=== PATIENT | female | born 1980 | race Caucasian/White ===

== ENCOUNTER → 2017-02-02 | Outpatient (CLI) | payer OTHER ==
[~2017-02-02] MED LIST: ABIL15TA PO; ABIL15TA2 PO; ABIL1TAB7 PO; ARIP1TAB2 PO; Aripiprazole PO; CEFT500T3 PO; CLON1TAB PO; DEPA500T2 PO; ESKALITH PO; LAMI25TA PO; LAMO100T PO; LATU20TA PO; LEVO25TABR PO; LITH45TASA PO; LO LTAB PO; PROZ20CA11 PO; TRAZ50TA2 PO; TRAZ50TA4 PO; TRAZO50TA PO; TRIL600T PO; ZOLP-189 PO
[2017-02-02 07:40] LABS: MEAN CORPUSCULAR HEMOGLOBIN 29.3 pg (27.0-33.0); MEAN CORPUSCULAR VOLUME 88.7 fl (80.0-96.0); RED CELL DISTRIBUTION WIDTH 12.7 % (11.5-14.5); WHITE BLOOD COUNT 8.8 K/mm3 (4.0-10.0)
[2017-02-02 07:58] LABS: ALBUMIN 3.5 GM/DL (3.2-5.2); ANION GAP 7 MEQ/L (8-16); BLOOD UREA NITROGEN 11 MG/DL (7-18); CARBON DIOXIDE LEVEL 29 MEQ/L (21-32); CHLORIDE LEVEL 109 MEQ/L (98-107); CREATININE FOR GFR 0.87 MG/DL (0.55-1.02); GLOMERULAR FILTRATION RATE > 60.0 (>60); GLUCOSE, FASTING 100 MG/DL (70-105); PHOSPHORUS LEVEL 2.9 MG/DL (2.5-4.9); POTASSIUM SERUM 4.9 MEQ/L (3.5-5.1); SODIUM LEVEL 145 MEQ/L (136-145)
[2017-02-02 07:59] LABS: LITHIUM LEVEL 0.54 MEQ/L (0.60-1.20)
== END ==
LOC: M LAB 06:42
PROVIDERS: ATTEND Nurse Practitioner Psychiatric/Mental Health
DX: Z79.899 Other long term (current) drug therapy (principal)

== ENCOUNTER 2017-03-22 09:14 | Emergency (ER) | payer OTHER ==
[~2017-03-22] VITALS: Ht 160 cm; Wt 97.5 kg
[2017-03-22 09:15] VITALS: BP 148/92
[2017-03-22 10:25] LABS: LITHIUM LEVEL 0.92 MEQ/L (0.60-1.20)
== END 2017-03-22 10:56 | disposition home or self-care (01) ==
LOC: M ED 10:50
DX: R19.7 Diarrhea, unspecified (principal); T43.595A Adverse effect of other antipsychotics and neuroleptics, initial encounter; F31.9 Bipolar disorder, unspecified; F41.9 Anxiety disorder, unspecified; F17.210 Nicotine dependence, cigarettes, uncomplicated; Z79.899 Other long term (current) drug therapy
CPT/HCPCS: 36415; 80178; 99281; G0480

== ENCOUNTER → 2017-04-25 | Outpatient (CLI) | payer OTHER ==
[2017-04-25 10:03] LABS: MEAN CORPUSCULAR HEMOGLOBIN 28.6 pg (27.0-33.0); MEAN CORPUSCULAR HGB CONC 32.8 g/dl (32.0-36.5); MEAN CORPUSCULAR VOLUME 87.2 fl (80.0-96.0); WHITE BLOOD COUNT 11.1 K/mm3 (4.0-10.0)
[2017-04-25 10:40] LABS: ALBUMIN 3.6 GM/DL (3.2-5.2); ALKALINE PHOSPHATASE 77 U/L (45-117); ALT/SGPT 21 U/L (12-78); ANION GAP 5 MEQ/L (8-16); AST/SGOT 11 U/L (15-37); BILIRUBIN,TOTAL 0.9 MG/DL (0.2-1.0); BLOOD UREA NITROGEN 9 MG/DL (7-18); CALCIUM LEVEL 9.1 MG/DL (8.5-10.1); CARBON DIOXIDE LEVEL 29 MEQ/L (21-32); CHLORIDE LEVEL 108 MEQ/L (98-107); CHOLESTEROL LEVEL 182 MG/DL (<200); CREATININE FOR GFR 0.71 MG/DL (0.55-1.02); GLOMERULAR FILTRATION RATE > 60.0 (>60); GLUCOSE, FASTING 93 MG/DL (70-105); PHOSPHORUS LEVEL 3.6 MG/DL (2.5-4.9); POTASSIUM SERUM 4.2 MEQ/L (3.5-5.1); SODIUM LEVEL 142 MEQ/L (136-145); TOTAL PROTEIN 7.2 GM/DL (6.4-8.2); TRIGLYCERIDES LEVEL 157 MG/DL (<150)
[2017-04-25 11:01] LABS: LITHIUM LEVEL 0.38 MEQ/L (0.60-1.20)
== END ==
LOC: M LAB 09:39
PROVIDERS: ATTEND Nurse Practitioner Psychiatric/Mental Health
DX: F31.32 Bipolar disorder, current episode depressed, moderate (principal)

== ENCOUNTER → 2017-04-25 | Outpatient (CLI) | payer OTHER | LOC: M OUTALCOH 08:17 | PROVIDERS: ATTEND Psychiatry & Neurology Psychiatry | DX: F10.20 Alcohol dependence, uncomplicated (principal); F12.10 Cannabis abuse, uncomplicated ==

== ENCOUNTER 2017-05-06 12:24 | Emergency (ER) | payer MEDICAID, OTHER ==
[~2017-05-06] VITALS: Ht 162.6 cm; Wt 110.7 kg
[2017-05-06] MEDS ORDERED: LITH300C PO (12:30)
[2017-05-06] MEDS ORDERED: LAMO200T PO (12:30)
[2017-05-06] MEDS ORDERED: PENI250T57 PO (14:10)
[2017-05-06] MEDS ORDERED: IBUP600T26 PO (14:10)
[2017-05-06] MEDS ORDERED: PENICILLIN V POTASSIUM 500 MG TAB PO ONE (14:15)
[2017-05-06] MEDS ORDERED: IBUPROFEN 600 MG TAB PO ONE (14:15)
[2017-05-06] MEDS ORDERED: NORCO 5/325MG TABLET (BULK FOR ED) PO ONE (14:15)
[2017-05-06 15:05] VITALS: BP 144/74
== END 2017-05-06 15:07 | disposition home or self-care (01) ==
LOC: M ED 12:56
DX: S02.5XXA Fracture of tooth (traumatic), initial encounter for closed fracture (principal); X58.XXXA Exposure to other specified factors, initial encounter; Y92.9 Unspecified place or not applicable; Y93.9 Activity, unspecified; Y99.9 Unspecified external cause status; F17.200 Nicotine dependence, unspecified, uncomplicated

== ENCOUNTER 2017-05-24 10:00 | Outpatient (RCR) | payer MEDICAID ==
[~2017-05-24 10:00] MED LIST changes: -ABIL15TA2 PO; +ABIL1TAB12 PO; -ABIL1TAB7 PO; +ABIL20TA5 PO; +IBUP-1022 PO; +LAMO200T PO; +LITH300C PO; +PENI250T57 PO; +TRAZ50TA11 PO; -TRAZ50TA4 PO
== END 2017-05-26 ==
LOC: M OUTALCOH 10:00
PROVIDERS: ATTEND Psychiatry & Neurology Psychiatry
DX: Z13.9 Encounter for screening, unspecified (principal); F10.20 Alcohol dependence, uncomplicated; F12.10 Cannabis abuse, uncomplicated; F17.200 Nicotine dependence, unspecified, uncomplicated

== ENCOUNTER 2017-06-22 09:00 | Outpatient (RCR) | payer MEDICAID | END 2017-06-26 | LOC: M OUTALCOH 09:00 | PROVIDERS: ATTEND Psychiatry & Neurology Psychiatry | DX: F10.20 Alcohol dependence, uncomplicated (principal); F12.10 Cannabis abuse, uncomplicated; F17.200 Nicotine dependence, unspecified, uncomplicated ==

== ENCOUNTER 2018-01-01 19:54 | Emergency (ER) | payer OTHER, MEDICAID ==
[2018-01-02 00:41] LABS: INFLUENZA A AMPLIFICATION NEGATIVE (NEGATIVE)
[2018-01-02 00:42] LABS: INFLUENZA B AMPLIFICATION POSITIVE (NEGATIVE)
[2018-01-02] MEDS: OSELTAMIVIR PHOSPHATE 75 MG CAP (TAMIFLU) PO (02:14)
== END 2018-01-02 02:17 | disposition home or self-care (01) ==
LOC: M ED 19:54
DX: J10.1 Influenza due to other identified influenza virus with other respiratory manifestations (principal); F17.200 Nicotine dependence, unspecified, uncomplicated; Z79.899 Other long term (current) drug therapy
CPT/HCPCS: 87502

== ENCOUNTER 2018-09-21 07:41 | Emergency (ER) | payer OTHER ==
[2018-09-21] MEDS: NORCO, ANEXSIA 5/325MG TABLET (HYDROcodone/ACETAMINOPHEN) PO (08:07)
== END 2018-09-21 08:42 | disposition home or self-care (01) ==
LOC: M ED 07:41
DX: S46.812A Strain of other muscles, fascia and tendons at shoulder and upper arm level, left arm, initial encounter (principal); S46.012A Strain of muscle(s) and tendon(s) of the rotator cuff of left shoulder, initial encounter; M19.012 Primary osteoarthritis, left shoulder; X50.0XXA Overexertion from strenuous movement or load, initial encounter; Y92.098 Other place in other non-institutional residence as the place of occurrence of the external cause; F31.9 Bipolar disorder, unspecified; F17.210 Nicotine dependence, cigarettes, uncomplicated; Z79.899 Other long term (current) drug therapy
CPT/HCPCS: 73030

== ENCOUNTER → 2018-10-29 | Outpatient (CLI) | payer OTHER | LOC: M LAB 17:35 | DX: K75.9 Inflammatory liver disease, unspecified (principal) | CPT/HCPCS: 86803 ==

== ENCOUNTER → 2018-12-24 | Outpatient (CLI) | payer OTHER ==
[~2018-12-24] MED LIST changes: +IBUP80TA PO; -LAMO200T PO; +LAMO200T2 PO; +OSEL75CA PO; +TRAZ-160; +TRAZ-160 PO; -TRAZ50TA11 PO
[2018-12-24 09:08] LABS: BASO % 0.2 % (0.0-1.0); EOS # 0.2 10^3/uL (0.0-0.50); EOS % 1.8 % (0.0-3.0); HEMATOCRIT 43.7 % (36.0-47.0); HEMOGLOBIN 14.4 g/dl (12.0-15.5); LYMPH # 2.7 10^3/uL (1.5-4.5); LYMPH % 30.1 % (24.0-44.0); MEAN CORPUSCULAR HEMOGLOBIN 28.6 pg (27.0-33.0); MEAN CORPUSCULAR VOLUME 86.7 fl (80.0-96.0); MONO # 0.7 10^3/uL (0.0-0.8); MONO % 8.2 % (0.0-5.0); NEUTROPHILS # 5.4 10^3/uL (1.8-7.7); PLATELET COUNT, AUTOMATED 181 10^3/uL (150-450); RED BLOOD COUNT 5.04 10^6/uL (4.00-5.40); WHITE BLOOD COUNT 9.1 10^3/uL (4.0-10.0)
[2018-12-24 09:33] LABS: ALBUMIN 3.5 GM/DL (3.2-5.2); ALT/SGPT 167 U/L (12-78); BILIRUBIN,TOTAL 0.4 MG/DL (0.2-1.0); BLOOD UREA NITROGEN 11 MG/DL (7-18); CALCIUM LEVEL 8.7 MG/DL (8.5-10.1); CARBON DIOXIDE LEVEL 27 MEQ/L (21-32); CHLORIDE LEVEL 106 MEQ/L (98-107); CREATININE FOR GFR 0.64 MG/DL (0.55-1.30); GLOMERULAR FILTRATION RATE > 60.0 (>60); GLUCOSE, FASTING 85 MG/DL (70-100); POTASSIUM SERUM 4.2 MEQ/L (3.5-5.1); SODIUM LEVEL 140 MEQ/L (136-145); TOTAL PROTEIN 6.9 GM/DL (6.4-8.2)
[2018-12-24 09:48] LABS: HEPATITIS B SURFACE ANTIBODY NEGATIVE (POSITIVE)
[2018-12-24 09:59] LABS: HEPATITIS B SURFACE ANTIGEN NEGATIVE (NEGATIVE)
[2018-12-24 10:35] LABS: HEPATITIS C VIRUS ABY INDEX > 11.0 INDEX (<0.8)
== END ==
LOC: M LAB 07:50
PROVIDERS: ATTEND Family Medicine Addiction Medicine
DX: B18.2 Chronic viral hepatitis C (principal)

== ENCOUNTER → 2018-12-27 | Outpatient (REF) | payer OTHER, MEDICAID ==
[2018-12-27 15:42] LABS: INR 0.92; PROTHROMBIN TIME 12.5 SECONDS (12.1-14.4)
[2019-01-01 14:17] LABS: HEPATITIS C QUANTITATION 1318930 IU/mL (.)
[2019-01-02 00:08] LABS: HEPATITIS C VIRUS GENOTYPE 3 (.)
== END ==
LOC: M LAB REF 15:04
PROVIDERS: ATTEND Nurse Practitioner Adult Health
DX: B18.2 Chronic viral hepatitis C (principal)

== ENCOUNTER → 2019-01-08 | Outpatient (REF) | payer OTHER, MEDICAID ==
[2019-01-08 21:48] LABS: CHLAMYDIA DNA AMPLIFICATION NEGATIVE (NEGATIVE); GC DNA AMPLIFICATION NEGATIVE (NEGATIVE)
== END ==
LOC: M LAB REF 17:58
PROVIDERS: ATTEND Physician Assistant Medical
DX: Z11.3 Encounter for screening for infections with a predominantly sexual mode of transmission (principal)

== ENCOUNTER → 2019-03-06 | Outpatient (REF) | payer OTHER, MEDICAID ==
[2019-03-11 14:47] LABS: HEPATITIS C QUANTITATION <15 IU/mL (.)
== END ==
LOC: M LAB REF 16:39
PROVIDERS: ATTEND Nurse Practitioner Adult Health
DX: B18.2 Chronic viral hepatitis C (principal)

== ENCOUNTER → 2019-04-03 | Outpatient (REF) | payer OTHER, MEDICAID ==
[2019-04-08 14:12] LABS: HEPATITIS C QUANTITATION HCV Not Detected IU/mL (.)
== END ==
LOC: M LAB REF 17:20
PROVIDERS: ATTEND Nurse Practitioner Adult Health
DX: B18.2 Chronic viral hepatitis C (principal)

== ENCOUNTER 2019-06-21 07:50 | Emergency (ER) | payer OTHER, MEDICAID ==
[~2019-06-21] VITALS: Ht 160 cm; Wt 85.9 kg
[2019-06-21 07:50] VITALS: BP 152/76
[~2019-06-21 07:50] MED LIST changes: -TRAZ-160; -TRAZ-160 PO; +TRAZ-252; +TRAZ-252 PO; +TRAZ1TAB10 PO; -TRAZO50TA PO
--- NOTE | 2019-06-21 09:45 | REP ---
Right rib series four views: There is no rib fracture or other rib abnormality. PA chest: Comparison is the PA and lateral chest of 11/30/2015. There is no pneumothorax, hemothorax or pulmonary contusion. There is no pleural thickening. The lung gale are clear. Cardiac size is normal. The stephanie, mediastinum, skeletal structures are unremarkable. There is no interval change. Impression: Negative PA chest. Electronically Signed by Robby Walls MD 06/21/2019 09:37 A
== END 2019-06-21 10:17 | disposition home or self-care (01) ==
LOC: M ED 07:50
DX: S20.211A Contusion of right front wall of thorax, initial encounter (principal); W10.9XXA Fall (on) (from) unspecified stairs and steps, initial encounter; Y92.099 Unspecified place in other non-institutional residence as the place of occurrence of the external cause; Y93.9 Activity, unspecified; Y99.9 Unspecified external cause status; F31.9 Bipolar disorder, unspecified; Z72.0 Tobacco use

== ENCOUNTER 2019-12-17 11:25 | Emergency (ER) | payer MEDICAID, OTHER ==
[~2019-12-17] VITALS: Ht 160 cm; Wt 85.0 kg
[~2019-12-17 11:25] MED LIST changes: -LAMO100T PO; +LAMO100T3 PO; -LAMO200T2 PO; +LAMO200T3 PO
[2019-12-17 16:22] VITALS: BP 157/97
[2019-12-17 16:30] LABS: HEMATOCRIT 45.6 % (36.0-47.0); HEMOGLOBIN 14.6 g/dl (12.0-15.5); MEAN CORPUSCULAR VOLUME 87.5 fl (80.0-96.0); PLATELET COUNT, AUTOMATED 184 10^3/uL (150-450); RED BLOOD COUNT 5.21 10^6/uL (4.00-5.40)
[2019-12-17 16:48] LABS: BLOOD UREA NITROGEN 12 MG/DL (7-18); CALCIUM LEVEL 9.1 MG/DL (8.5-10.1); CARBON DIOXIDE LEVEL 25 MEQ/L (21-32); CHLORIDE LEVEL 109 MEQ/L (98-107); CREATININE FOR GFR 0.71 MG/DL (0.55-1.30); GLOMERULAR FILTRATION RATE > 60.0 (>60); GLUCOSE, FASTING 88 MG/DL (70-100); POTASSIUM SERUM 4.2 MEQ/L (3.5-5.1); SODIUM LEVEL 141 MEQ/L (136-145)
[2019-12-17 16:52] LABS: HCG, SERUM QUALITATIVE NEGATIVE (NEGATIVE)
[2019-12-17 18:30] LABS: ALBUMIN 3.9 GM/DL (3.2-5.2); ALT/SGPT 19 U/L (12-78); BILIRUBIN,DIRECT 0.2 MG/DL (0.0-0.2); BILIRUBIN,TOTAL 0.9 MG/DL (0.2-1.0); TOTAL PROTEIN 6.9 GM/DL (6.4-8.2)
[2019-12-17] MEDS ORDERED: FLAG500T PO (18:58)
[2019-12-17] MEDS ORDERED: metroNIDAZOLE (FLAGYL) 500 MG TAB PO ONE (19:00)
[2019-12-17 20:07] LABS: CHLAMYDIA DNA AMPLIFICATION NEGATIVE (NEGATIVE); GC DNA AMPLIFICATION NEGATIVE (NEGATIVE)
== END 2019-12-17 19:10 | disposition home or self-care (01) ==
LOC: M ED 11:25
DX: N76.0 Acute vaginitis (principal); F31.10 Bipolar disorder, current episode manic without psychotic features, unspecified; R11.2 Nausea with vomiting, unspecified; M54.5 Low back pain; F41.1 Generalized anxiety disorder; F17.210 Nicotine dependence, cigarettes, uncomplicated

== ENCOUNTER → 2020-02-04 | Outpatient (REF) | payer OTHER ==
[~2020-02-04] MED LIST changes: +FLAG500T PO
[2020-02-04 13:17] LABS: BASO % 0.3 % (0.0-1.0); EOS # 0.1 10^3/uL (0.0-0.5); EOS % 0.7 % (0.0-3.0); HEMATOCRIT 42.4 % (36.0-47.0); HEMOGLOBIN 13.8 g/dl (12.0-15.5); LYMPH # 2.7 10^3/uL (1.5-5.0); LYMPH % 25.3 % (24.0-44.0); MEAN CORPUSCULAR HEMOGLOBIN 28.6 pg (27.0-33.0); MEAN CORPUSCULAR HGB CONC 32.5 g/dl (32.0-36.5); MONO # 0.7 10^3/uL (0.0-0.8); MONO % 6.9 % (0.0-5.0); NEUTROPHILS # 7.2 10^3/uL (1.5-8.5); NEUTROPHILS % 66.5 % (36.0-66.0); PLATELET COUNT, AUTOMATED 171 10^3/uL (150-450); RED BLOOD COUNT 4.82 10^6/uL (4.00-5.40); WHITE BLOOD COUNT 10.8 10^3/uL (4.0-10.0)
[2020-02-04 13:45] LABS: ALBUMIN 3.4 GM/DL (3.2-5.2); ALT/SGPT 20 U/L (12-78); BILIRUBIN,TOTAL 0.6 MG/DL (0.2-1.0); BLOOD UREA NITROGEN 16 MG/DL (7-18); CALCIUM LEVEL 8.4 MG/DL (8.5-10.1); CARBON DIOXIDE LEVEL 25 MEQ/L (21-32); CHLORIDE LEVEL 112 MEQ/L (98-107); CHOLESTEROL LEVEL 177 MG/DL (<200); CHOLESTEROL RISK RATIO 2.602 (<5); CREATININE FOR GFR 0.58 MG/DL (0.55-1.30); FREE T4 0.88 NG/DL (0.76-1.46); GLOMERULAR FILTRATION RATE > 60.0 (>60); GLUCOSE, FASTING 96 MG/DL (70-100); HDL CHOLESTEROL 68 MG/DL (>40); LDL CHOLESTEROL 95 MG/DL (<100); NON-HDL-C 109 MG/DL; POTASSIUM SERUM 4.3 MEQ/L (3.5-5.1); SODIUM LEVEL 143 MEQ/L (136-145); TOTAL 25(OH) VITAMIN D 38.7 NG/ML (30.0-100.0); TRIGLYCERIDES LEVEL 70 MG/DL (<150)
[2020-02-04 19:46] LABS: HEMOGLOBIN A1c 5.7 %
== END ==
LOC: M LAB REF 12:11
PROVIDERS: ATTEND Nurse Practitioner Family
DX: Z13.9 Encounter for screening, unspecified (principal); F41.8 Other specified anxiety disorders; L98.8 Other specified disorders of the skin and subcutaneous tissue; R45.4 Irritability and anger; N95.1 Menopausal and female climacteric states; Z72.0 Tobacco use

== ENCOUNTER 2020-04-22 12:44 | Inpatient (IN) | payer OTHER ==
[~2020-04-22] VITALS: Ht 167.6 cm; Wt 88.0 kg
[2020-04-22 13:20] LABS: HEMATOCRIT 43.5 % (36.0-47.0); HEMOGLOBIN 14.2 g/dl (12.0-15.5); MEAN CORPUSCULAR HEMOGLOBIN 28.2 pg (27.0-33.0); MEAN CORPUSCULAR HGB CONC 32.6 g/dl (32.0-36.5); MEAN CORPUSCULAR VOLUME 86.5 fl (80.0-96.0); PLATELET COUNT, AUTOMATED 166 10^3/uL (150-450); RED BLOOD COUNT 5.03 10^6/uL (4.00-5.40)
[2020-04-22 13:47] LABS: HCG, SERUM QUALITATIVE NEGATIVE (NEGATIVE)
[2020-04-22 14:04] LABS: ACETAMINOPHEN LEVEL < 2.0 UG/ML (10.0-30.0); ALBUMIN 3.8 GM/DL (3.2-5.2); ALT/SGPT 22 U/L (12-78); BILIRUBIN,DIRECT 0.2 MG/DL (0.0-0.2); BLOOD UREA NITROGEN 13 MG/DL (7-18); CARBON DIOXIDE LEVEL 27 MEQ/L (21-32); CHLORIDE LEVEL 109 MEQ/L (98-107); CREATININE FOR GFR 0.65 MG/DL (0.55-1.30); ETHYL ALCOHOL (ETHANOL) < 0.003 % (0.000-0.010); GLOMERULAR FILTRATION RATE > 60.0 (>60); GLUCOSE, FASTING 93 MG/DL (70-100); POTASSIUM SERUM 4.1 MEQ/L (3.5-5.1); SALICYLATE LEVEL < 1.7 MG/DL (5.0-30.0); SODIUM LEVEL 143 MEQ/L (136-145); TOTAL PROTEIN 6.9 GM/DL (6.4-8.2)
[2020-04-22 15:14] LABS: AMPHETAMINES LEVEL URINE NEGATIVE (NEGATIVE); BARBITURATES URINE NEGATIVE (NEGATIVE); BENZODIAZEPINES URINE NEGATIVE (NEGATIVE); CANNABINOIDS URINE NEGATIVE (NEGATIVE); COCAINE METABOLITE URINE NEGATIVE (NEGATIVE); METHADONE URINE NEGATIVE (NEGATIVE); OPIATES URINE NEGATIVE (NEGATIVE); PHENCYCLIDINE URINE NEGATIVE (NEGATIVE)
[2020-04-22] MEDS ORDERED: OLANZapine ORAL DISINTEGRATING TAB 5MG PO ONE (17:00)
[2020-04-22] MEDS ORDERED: MAALOX 30 ML SUSP *UDC PO PRN (19:15)
[2020-04-22] MEDS ORDERED: MOM 30ML SUSPENSION UDC PO PRN (19:15)
[2020-04-22] MEDS: traZODone 50 MG TAB PO PRN (21:43)
[2020-04-22] MEDS: OLANZapine 10 MG TAB PO SCH (21:43)
[2020-04-22 22:25] VITALS: BP 106/80
[2020-04-23 06:04] VITALS: BP 128/86
[2020-04-23] MEDS: OLANZapine 10 MG TAB PO SCH (09:00)
[2020-04-23] MEDS: NICOTINE 21MG/24HR 1 EA TRANSDERMAL TD SCH ×2 (09:00→15:30)
--- NOTE | 2020-04-23 10:19 | MHHPEPDOC ---
General Date Of Admission: April 22, 2020 Legal Status: 9.39 Chief Complaint "Stuff!" History of Present Illness HISTORY OF THE PRESENT ILLNESS: Patient is a 39 -year-old , female, who Presented to [facility] after using methamphetamine. She was very distorted and unable to answer basic questions. During the evaluation on the unit, she was very distorted, although pleasant she was unable to be understood due to her rapid speech of disorganization.. Psychiatric Review of Systems Simin (4 or more days of): expansive mood, decreased need for sleep, talkativity, pressured, distractibility Psychosis: paranoia Past Psychiatric History Previous Psychiatric Diagnosis: reportedly history of bipolar. Previous Psychiatric Admissions: last in 2016. Suicide Attempts: none noted. Psychiatric Follow-up: none. Psychiatric medications: none. Past Medical History Medical Problems None noted Family Medical/Psychiatric HX Medical Problems unknown Addiction History amphetamines Social History Unknown unable to determine due to patient's distortion Mental Status Examination General Appearance: unkempt Build: overweight Demeanor: average Eye Contact: intense Activity: average Behavior: restless Speech: rapid, pressured Mood: euphoric Mood "stuff" Affect: labile Thought Process: incoherent Thought Content (Delusions): persecutory Thought Content (Other): obsessional, appears paranoid Oriented: Awake, Alert Insight: poor Judgment: Poor Psychosis: Psychotic Perceptions A-FIB/CHADSVASC A-FIB History Current/History of A-Fib/PAF?: No Assessment 39-year-old woman with a history of bipolar disorder presents in a manic like state after using methamphetamine. Problem List Problems: (1) Bipolar disorder Status: Acute Response to Treatment: Uncontrolled Problem Specific Plan: Monitor Clinically Problem Text: Start patient on previously tried lithium at 150 mg BID (2) Methamphetamine abuse Status: Chronic Response to Treatment: Uncontrolled Problem Specific Plan: Monitor Clinically Problem Text: Likely referral to substance use clinic when she is discharged. Initial Treatment Plan 1. Patient was admitted on a [9.39] status. 2. Complete history was obtained. 3. With patients permission, family will be contacted and database will be expanded. 4. Patients medication regimen will be reviewed and changed accordingly. 5. Patient will be provided with protected environment. 6. Patient will be treated with individual, group, and milieu therapies. 7. Patient will receive supportive psych-education. 8. Discharge planning will commence immediately. 9. Outpatient follow-up treatment will be strongly recommended. 10. The initial treatment plan will focus initially on: * Depression. * Risk for suicide. ESTIMATED LENGTH OF STAY:2-3 DAYS. TIME SPENT COUNSELING AND COORDINATING INITIAL CARE: 70 minutes with greater than 50% of time spent on counseling/coordination of care. Vital Signs Vital Signs Date Time Temp Pulse Resp B/P (MAP) Pulse Ox O2 Delivery O2 Flow Rate FiO2 04/23/20 06:04 98.2 65 14 128/86 (100) 100 Room Air Laboratory Data 24H Labs Laboratory Tests 2 04/22/20 13:07: Urine Opiates Screen NEGATIVE, Urine Methadone Screen NEGATIVE, Urine Barbiturates Screen NEGATIVE, Urine Phencyclidine Screen NEGATIVE, Urine [place] mines Screen NEGATIVE, Urine Benzodiazepines Screen NEGATIVE, Urine Cocaine Metabolite Screen NEGATIVE, Urine Cannabinoids Screen NEGATIVE 04/22/20 13:10: Nucleated Red Blood Cells % (auto) 0.0, Anion Gap 7L, Glomerular Filtration Rate > 60.0, Calcium Level 9.0, Total Bilirubin 1.0, Direct Bilirubin 0.2, Aspartate Amino Transf (AST/SGOT) 13, Alanine Aminotransferase (ALT/SGPT) 22, Alkaline Phosphatase 63, Total Protein 6.9, Albumin 3.8, Albumin/Globulin Ratio 1.2, Thyroid Stimulating Hormone (TSH) 1.690, Human Chorionic Gonadotropin, Qual NEGATIVE, Salicylates Level < 1.7L, Acetaminophen Level < 2.0L, Ethyl Alcohol Level < 0.003 CBC/BMP Laboratory Tests 04/22/20 13:10 Medications Unable to Obtain Active Prescriptions or Reported Meds Allergies Coded Allergies: No Known Allergies (Verified , 04/22/20) GERA REESE DO April 23, 2020 10:19
[2020-04-23 17:20] VITALS: BP 140/82
[2020-04-23] MEDS: LITHIUM CARBONATE 150 MG CAP PO SCH (20:05)
[2020-04-23] MEDS: traZODone 50 MG TAB PO PRN (22:12)
[2020-04-24] MEDS: OLANZapine 5 MG TAB PO PRN ×2 (06:01→13:26)
[2020-04-24 06:34] VITALS: BP 127/85
[2020-04-24] MEDS: LITHIUM CARBONATE 150 MG CAP PO SCH (08:05)
[2020-04-24] MEDS: ACETAMINOPHEN TAB 650MG DOSE (2X325MG) PO PRN ×2 (08:05→16:49)
[2020-04-24] MEDS: NICOTINE 21MG/24HR 1 EA TRANSDERMAL TD SCH (08:06)
--- NOTE | 2020-04-24 09:18 | MHIPNPDOC ---
[facility] Progress Note Progress Note DATE OF SERVICE: 04/24/20 The patient is met with today. She still quite distorted stating her head is "still to full", she is rapid and pressured. She makes little sense but is redirected full at times. She is had no major behavioral problems overnight and has been taking her medicines. Vital Signs Vital Signs Date Time Temp Pulse Resp B/P (MAP) Pulse Ox O2 Delivery O2 Flow Rate FiO2 04/24/20 06:34 98.6 95 20 127/85 (99) 97 Room Air Current Medications Current Medications Medications (Trade) Dose Ordered Sig/Karl Route PRN Reason Start Time Stop Time Status Last Admin Dose Admin Acetaminophen (Tylenol Tab) 650 mg Q6HP PRN PO HEADACHE or DISCOMFORT 04/22/20 19:15 04/24/20 08:05 Al Hydrox/Mg Hydrox/Simethicone (Mylanta) 30 ml Q4HP PRN PO HEARTBURN/INDIGESTION 04/22/20 19:15 [place] Carbonate ([place] Carbonate) 150 mg BID PO 04/23/20 21:00 04/24/20 08:05 Magnesium Hydroxide (Milk Of Magnesia) 30 ml DAILYPRN PRN PO CONSTIPATION 04/22/20 19:15 Nicotine (Nicoderm Cq 21mg) 1 patch DAILY TD 04/23/20 09:00 04/24/20 08:06 Olanzapine (ZyPREXA) 5 mg Q6HP PRN PO ANXIETY/AGITATION 04/22/20 19:15 04/24/20 06:01 Olanzapine (ZyPREXA) 10 mg BID PO 04/22/20 21:00 04/23/20 10:25 DC 04/22/20 21:43 Trazodone HCl (Desyrel) 50 mg QHSP PRN PO INSOMNIA 04/22/20 19:15 04/23/20 22:12 Allergies Coded Allergies: No Known Allergies (Verified , 04/22/20) Review of Systems Review of Systems General: Reports: ROS Unobtainable Mental Status Examination General Appearance: unkempt Build: overweight Demeanor: preoccupied Eye Contact: intense Activity: agitated Behavior: hyperactive Speech: rapid Mood: euphoric Affect: disorganized Thought Process: incoherent Thought Content (Delusions): grandiose, persecutory Thought Content (Other): preoccupied Cognition (Impairment of): attention/concentration Oriented: Awake, Alert Insight: poor Judgment: Poor Psychosis: Psychotic Perceptions Assessment 39-year-old woman with a history of likely bipolar disorder presents distorted and making some progress on lithium. Problem List Problems: (1) Bipolar disorder Status: Acute Response to Treatment: Improving Discussed With: Nurse, Patient Problem Specific Plan: Monitor Clinically Problem Text: Continue lithium 150 mg daily with an increase to 300 mg BID tomorrow, add Zyprexa 5 mg nightly (2) Methamphetamine abuse Status: Chronic Medications Unable to Obtain Active Prescriptions or Reported Meds GERA REESE DO April 24, 2020 09:18
[2020-04-24 17:10] VITALS: BP 132/73
[2020-04-24] MEDS: LITHIUM CARBONATE 300 MG CAP PO SCH (21:12)
[2020-04-24] MEDS: OLANZapine ORAL DISINTEGRATING TAB 5MG PO SCH (21:12)
[2020-04-25 05:59] VITALS: BP 144/89
[2020-04-25] MEDS: LITHIUM CARBONATE 300 MG CAP PO SCH ×2 (07:56→20:39)
[2020-04-25] MEDS: NICOTINE 21MG/24HR 1 EA TRANSDERMAL TD SCH (07:58)
[2020-04-25] MEDS: OLANZapine 5 MG TAB PO PRN ×2 (10:05→16:17)
[2020-04-25 16:38] VITALS: BP 118/84
[2020-04-25] MEDS: traZODone 50 MG TAB PO PRN (20:39)
[2020-04-25] MEDS: OLANZapine ORAL DISINTEGRATING TAB 5MG PO SCH (20:39)
[2020-04-26 06:25] VITALS: BP 130/80
[2020-04-26] MEDS: OLANZapine 5 MG TAB PO PRN ×2 (08:00→15:58)
[2020-04-26] MEDS: NICOTINE 21MG/24HR 1 EA TRANSDERMAL TD SCH (08:00)
[2020-04-26] MEDS: LITHIUM CARBONATE 300 MG CAP PO SCH ×2 (08:00→20:23)
[2020-04-26 16:53] VITALS: BP 138/96
--- NOTE | 2020-04-26 17:46 | HPEPDOC ---
[facility] Medical History & Physical Date of Admission April 22, 2020 Date of Service: April 23, 2020 History and Physical CHIEF COMPLAINT: Admitted to inpatient mental health unit for psychosis HISTORY OF PRESENT ILLNESS: 39-year-old female with past medical history of multiple psychiatric illnesses including schizophrenia, bipolar, depression is currently admitted to inpatient metabolic unit for psychosis. Patient has pressured speech and is disorganized with her thoughts and behavior, reports her psychiatric condition was worsening, which is why she Presented to the hospital. It is hard for her to focus and answer my questions appropriately, or stay on topic. She is otherwise without any complaints, denies any medical history, denies taking any other medications, denies shortness of breath, chest pain, nausea, vomiting, abdominal pain or diarrhea. 10 point review of system is negative except for above PAST MEDICAL HISTORY: 1. Schizophrenia. 2. Bipolar depression PAST SURGICAL HISTORY: 1. None. SOCIAL HISTORY: Current smoker. Social use. Reports polysubstance use FAMILY HISTORY: Unknown ALLERGIES: Please see below. HOME MEDICATIONS: Please see below. PHYSICAL EXAMINATION: VITAL SIGNS: Please see below. GENERAL: No distress HEENT: Normocephalic, atraumatic, moist mucous membranes NECK: Supple CARDIOVASCULAR EXAMINATION: S1, S2, no murmurs RESPIRATORY EXAMINATION: Clear to auscultation, no wheezing ABDOMINAL EXAMINATION: Soft, nontender, nondistended, positive bowel sounds EXTREMITIES: Range of motion intact SKIN: No rash NEUROLOGICAL EXAMINATION: Alert and oriented 3, no focal deficits PSYCHIATRIC EXAMINATION: Withdrawn LABORATORY DATA: See below. MICROBIOLOGY: Please see below. ASSESSMENT: 39-year-old female with multiple psychiatric conditions is currently admitted to inpatient mental health unit for psychosis. PLAN: 1. Psychosis. Management as per primary team Patient does not appear to have any other medical issues, chart reviewed, please reconsult as needed. Vital Signs Vital Signs Date Time Temp Pulse Resp B/P (MAP) Pulse Ox O2 Delivery O2 Flow Rate FiO2 04/26/20 16:53 97.9 89 16 138/96 (110) 98 Room Air Home Medications Unable to Obtain Active Prescriptions or Reported Meds Allergies Coded Allergies: No Known Allergies (Verified , 04/22/20) A-FIB/CHADSVASC A-FIB History Current/History of A-Fib/PAF?: No CORWIN AMATO MD April 26, 2020 17:46
[2020-04-26] MEDS: OLANZapine ORAL DISINTEGRATING TAB 5MG PO SCH (20:23)
[2020-04-26] MEDS: traZODone 50 MG TAB PO PRN (21:21)
[2020-04-27] MEDS: OLANZapine 5 MG TAB PO PRN ×2 (06:54→14:42)
[2020-04-27] MEDS: NICOTINE 21MG/24HR 1 EA TRANSDERMAL TD SCH (08:19)
[2020-04-27] MEDS: LITHIUM CARBONATE 300 MG CAP PO SCH (08:19)
--- NOTE | 2020-04-27 08:27 | MHIPN ---
DATE: 04/25/2020 This is a video assessment that is being done because of the virus pandemic. VITAL SIGNS: Blood pressure 118/84. Pulse 75. Temperature 98.1. CHIEF COMPLAINT: Says feels good. SUBJECTIVE: Seen for followup in the presence of staff. Says feels good, and that she has been feeling better, but has a hard time elaborating on this. Does indicate good sleep, and that she has been eating well. MENTAL STATUS EXAMINATION: Mildly fidgety, cooperative. Affect is somewhat labile, expansive at times as well. Tangential in thought at times, possibly loose association. Vague on suicidal thoughts. No evidence of any homicidal ideas or intents. Judgment and insight are compromised. ASSESSMENT: Bipolar disorder by history, currently manic, it is thought this is possibly induced by methamphetamines. PLAN: Continue current care, observations. Continue lithium carbonate 300 mg twice a day, olanzapine 5 mg at bedtime. She is encouraged to participate in treatment in the unit and current observations.
--- NOTE | 2020-04-27 10:07 | MHIPNPDOC ---
[facility] Progress Note Progress Note DATE OF SERVICE: 04/27/20 39-year-old woman is seen in follow-up, she reports that she is doing better but still has some voices in her head. She reports that she is making progress on the unit and is amenable to staying. The patient is still somewhat pressured and speech, but is very amenable and pleasant. Vital Signs Vital Signs Date Time Temp Pulse Resp B/P (MAP) Pulse Ox O2 Delivery O2 Flow Rate FiO2 04/26/20 16:53 97.9 89 16 138/96 (110) 98 Room Air Laboratory Data 24H Labs Laboratory Tests 2 04/27/20 08:27: [place] Level 0.28L Current Medications Current Medications Medications (Trade) Dose Ordered Sig/Karl Route PRN Reason Start Time Stop Time Status Last Admin Dose Admin Acetaminophen (Tylenol Tab) 650 mg Q6HP PRN PO HEADACHE or DISCOMFORT 04/22/20 19:15 04/24/20 16:49 Al Hydrox/Mg Hydrox/Simethicone (Mylanta) 30 ml Q4HP PRN PO HEARTBURN/INDIGESTION 04/22/20 19:15 [place] Carbonate ([place] Carbonate) 150 mg BID PO 04/23/20 21:00 04/24/20 10:38 DC 04/24/20 08:05 [place] Carbonate ([place] Carbonate) 300 mg BID PO 04/24/20 21:00 04/27/20 08:19 Magnesium Hydroxide (Milk Of Magnesia) 30 ml DAILYPRN PRN PO CONSTIPATION 04/22/20 19:15 Nicotine (Nicoderm Cq 21mg) 1 patch DAILY TD 04/23/20 09:00 04/27/20 08:19 Olanzapine (ZyPREXA ZYDIS) 5 mg QHS PO 04/24/20 21:00 04/26/20 20:23 Olanzapine (ZyPREXA) 5 mg Q6HP PRN PO ANXIETY/AGITATION 04/22/20 19:15 04/27/20 06:54 Olanzapine (ZyPREXA) 10 mg BID PO 04/22/20 21:00 04/23/20 10:25 DC 04/22/20 21:43 Trazodone HCl (Desyrel) 50 mg QHSP PRN PO INSOMNIA 04/22/20 19:15 04/26/20 21:21 Allergies Coded Allergies: No Known Allergies (Verified , 5/27/20) Review of Systems Review of Systems HEENT: Denies: Head Aches Skin: Denies: Rash Cardiovascular: Denies: Chest Pain, Palpitations Gastrointestinal: Denies: Vomiting, Diarrhea Mental Status Examination General Appearance: well groomed Build: average Demeanor: average Eye Contact: average Activity: average Behavior: cooperative Speech: pressured Mood: euthymic Affect: appropriate Thought Process: circumstantial Thought Content (Delusions): denies SI, HI, AVH Thought Content (Other): none reported Thought Content (Aggressive): none reported Perception (Hallucinations): none reported Perception (Other): none reported Cognition(Intelligence Est.): average Oriented: Awake, Alert Insight: improving Judgment: Improving Assessment 39-year-old woman with history bipolar disorder is making progress, increasing her Zyprexa lithium should get her to the last level of treatment before discharge Problem List Problems: (1) Bipolar disorder Status: Acute Response to Treatment: Improving Discussed With: Nurse, Patient Problem Specific Plan: Monitor Clinically Problem Text: Increase lithium to 300 mg daily, increase zyprexa to 10mg qhs (2) Methamphetamine abuse Status: Chronic Laboratory Data 24H Labs Laboratory Tests 2 04/27/20 08:27: [place] Level 0.28L Medications Unable to Obtain Active Prescriptions or Reported Meds GERA REESE DO Apr 27, 2020 10:07
--- NOTE | 2020-04-27 13:57 | MHIPN ---
DATE: 04/26/2020 This is a video assessment being done because of the virus pandemic, she is aware of it. VITAL SIGNS: Blood pressure 138/96. Pulse 89. Temperature 97.9. CHIEF COMPLAINT: The patient is seen in the presence of staff. Says she is doing very well. SUBJECTIVE: She says she is doing very well and that she feels rested and that she has a good night, moods have been good. MENTAL STATUS EXAMINATION: Cooperative. Coherent. Mildly fidgety, with a somewhat elated mood and an expansive affect to some extent. She denies any thoughts of harming herself or anyone else. No overt psychosis or delusions elicited at present. Judgment and insight remain compromised. ASSESSMENT: Bipolar disorder, current episode manic. PLAN: Continue current care, observations, including the lithium at 300 mg twice a day, olanzapine 5 mg at night. Will obtain a lithium level tomorrow morning. The last one that I could see done here was in 2017. It is possible she may had lithium levels drawn elsewhere since then. She will be seeing the assigned psychiatrist tomorrow, and further recommendations will be made.
[2020-04-27 15:17] VITALS: BP 136/89
[2020-04-27] MEDS: OLANZapine ORAL DISINTEGRATING TAB 5MG PO SCH (20:09)
[2020-04-27] MEDS: LITHIUM CARBONATE 150 MG CAP PO SCH (20:09)
[2020-04-27] MEDS: traZODone 50 MG TAB PO PRN (20:34)
[2020-04-28 06:09] VITALS: BP 138/90
[2020-04-28] MEDS: LITHIUM CARBONATE 150 MG CAP PO SCH ×2 (08:05→20:04)
[2020-04-28] MEDS: NICOTINE 21MG/24HR 1 EA TRANSDERMAL TD SCH ×2 (08:06→11:03)
--- NOTE | 2020-04-28 09:17 | MHIPNPDOC ---
[facility] Progress Note Progress Note The patient was seen on 04/28/20. 39-year-old woman with a history of bipolar disorder is seen in follow-up, she still hyper verbal in a bit tangential, although much improved. She is i nterested about going home today, however, she understands that she still needs to stay in order to get further treatment. She has meant behavioral problems but still remains pressured and distorted today. She reports she still has some problems with some paranoid thoughts. Vital Signs Vital Signs Date Time Temp Pulse Resp B/P (MAP) Pulse Ox O2 Delivery O2 Flow Rate FiO2 04/28/20 09:12 Room Air 04/28/20 06:09 98.7 106 18 138/90 (106) 98 Current Medications Current Medications Medications (Trade) Dose Ordered Sig/Karl Route PRN Reason Start Time Stop Time Status Last Admin Dose Admin Acetaminophen (Tylenol Tab) 650 mg Q6HP PRN PO HEADACHE or DISCOMFORT 04/22/20 19:15 04/24/20 16:49 Al Hydrox/Mg Hydrox/Simethicone (Mylanta) 30 ml Q4HP PRN PO HEARTBURN/INDIGESTION 04/22/20 19:15 [place] Carbonate ([place] Carbonate) 150 mg BID PO 04/23/20 21:00 04/24/20 10:38 DC 04/24/20 08:05 [place] Carbonate ([place] Carbonate) 300 mg BID PO 04/24/20 21:00 04/27/20 12:18 DC 04/27/20 08:19 [place] Carbonate ([place] Carbonate) 450 mg BID PO 04/27/20 21:00 04/28/20 08:05 Magnesium Hydroxide (Milk Of Magnesia) 30 ml DAILYPRN PRN PO CONSTIPATION 04/22/20 19:15 Nicotine (Nicoderm Cq 21mg) 1 patch DAILY TD 04/23/20 09:00 04/27/20 08:19 Olanzapine (ZyPREXA ZYDIS) 5 mg QHS PO 04/24/20 21:00 04/27/20 12:17 DC 04/26/20 20:23 Olanzapine (ZyPREXA ZYDIS) 10 mg QHS PO 04/27/20 21:00 04/27/20 20:09 Olanzapine (ZyPREXA) 5 mg Q6HP PRN PO ANXIETY/AGITATION 04/22/20 19:15 04/27/20 14:42 Olanzapine (ZyPREXA) 10 mg BID PO 04/22/20 21:00 04/23/20 10:25 DC 04/22/20 21:43 Trazodone HCl (Desyrel) 50 mg QHSP PRN PO INSOMNIA 04/22/20 19:15 04/27/20 20:34 Allergies Coded Allergies: No Known Allergies (Verified , 04/22/20) Review of Systems Review of Systems General: Reports: ROS Unobtainable Mental Status Examination General Appearance: unkempt Build: overweight Demeanor: average Eye Contact: intense Activity: agitated Behavior: cooperative Speech: rapid Mood: elevated Affect: labile Thought Process: tangential Thought Content (Delusions): persecutory, bizarre Thought Content (Aggressive): none reported Perception (Hallucinations): none reported Oriented: Awake, Alert Insight: improving Judgment: Improving Psychosis: Psychotic Perceptions Problem List Problems: (1) Bipolar disorder Status: Acute Response to Treatment: Improving Discussed With: Nurse, Patient Problem Specific Plan: Monitor Clinically Problem Text: Continue lithium 300 mg daily, add Zyprexa 5 mg in the morning and continue 10 mg at night (2) Methamphetamine abuse Status: Chronic Response to Treatment: Stable (3) Discharge planning issues Problem Specific Plan: Monitor Clinically Problem Text: Will need to ascertain discharge plan has patient improves. Medications Unable to Obtain Active Prescriptions or Reported Meds GERA REESE DO Apr 28, 2020 09:17
[2020-04-28] MEDS: OLANZapine 5 MG TAB PO PRN (12:30)
[2020-04-28 17:12] VITALS: BP 160/77
[2020-04-28] MEDS: OLANZapine ORAL DISINTEGRATING TAB 5MG PO SCH (20:04)
[2020-04-28] MEDS: traZODone 50 MG TAB PO PRN (20:58)
[2020-04-29 06:18] VITALS: BP 138/90
[2020-04-29] MEDS: OLANZapine ORAL DISINTEGRATING TAB 5MG PO SCH ×2 (08:16→20:08)
[2020-04-29] MEDS: LITHIUM CARBONATE 150 MG CAP PO SCH ×2 (08:17→20:08)
[2020-04-29] MEDS: NICOTINE 21MG/24HR 1 EA TRANSDERMAL TD SCH (08:17)
--- NOTE | 2020-04-29 09:17 | MHIPNPDOC ---
[facility] Progress Note Progress Note DATE OF SERVICE: 04/29/20 Events Overnight: none noted Group Attendance:: has been trying to Symptom changes (psych ROS): reports that her thoughts are still somewhat scattered but getting better, she still is somewhat bizarre Staff Report: staff report that she is been making some progress in making better choices. Medical ROS: Patient ended interview before full questioning MSE: General: poor Speech: rapid Thought processes: tangential Thought content: psychotic delusions Abstract reasoning, and computation: impaired Description of associations: imparied Description of abnormal or psychotic thoughts:Unclear, appears to have psychotic processes going on. Judgment: poor Insight: poor Orientation: Alert and orientated 3 Recent and remote memory: Intact Attention span and concentration: impaired secondary to thought process Fund of knowledge: unable to determine Mood: "have a good day" Affect: flat, little reactivity . Vital Signs Vital Signs Date Time Temp Pulse Resp B/P (MAP) Pulse Ox O2 Delivery O2 Flow Rate FiO2 04/29/20 06:18 96.4 81 20 138/90 (106) 96 Room Air Current Medications Current Medications Medications (Trade) Dose Ordered Sig/Karl Route PRN Reason Start Time Stop Time Status Last Admin Dose Admin Acetaminophen (Tylenol Tab) 650 mg Q6HP PRN PO HEADACHE or DISCOMFORT 04/22/20 19:15 04/24/20 16:49 Al Hydrox/Mg Hydrox/Simethicone (Mylanta) 30 ml Q4HP PRN PO HEARTBURN/INDIGESTION 04/22/20 19:15 [place] Carbonate ([place] Carbonate) 150 mg BID PO 04/23/20 21:00 04/24/20 10:38 DC 04/24/20 08:05 [place] Carbonate ([place] Carbonate) 300 mg BID PO 04/24/20 21:00 04/27/20 12:18 DC 04/27/20 08:19 [place] Carbonate ([place] Carbonate) 450 mg BID PO 04/27/20 21:00 04/29/20 08:17 Magnesium Hydroxide (Milk Of Magnesia) 30 ml DAILYPRN PRN PO CONSTIPATION 04/22/20 19:15 Nicotine (Nicoderm Cq 21mg) 1 patch DAILY TD 04/23/20 09:00 04/29/20 08:17 Olanzapine (ZyPREXA ZYDIS) 5 mg QAM PO 04/29/20 09:00 04/29/20 08:16 Olanzapine (ZyPREXA ZYDIS) 5 mg QHS PO 04/24/20 21:00 04/27/20 12:17 DC 04/26/20 20:23 Olanzapine (ZyPREXA ZYDIS) 10 mg QHS PO 04/27/20 21:00 04/28/20 20:04 Olanzapine (ZyPREXA) 5 mg Q6HP PRN PO ANXIETY/AGITATION 04/22/20 19:15 04/28/20 12:30 Olanzapine (ZyPREXA) 10 mg BID PO 04/22/20 21:00 04/23/20 10:25 DC 04/22/20 21:43 Trazodone HCl (Desyrel) 50 mg QHSP PRN PO INSOMNIA 04/22/20 19:15 04/28/20 20:58 Allergies Coded Allergies: No Known Allergies (Verified , 04/22/20) Problems (1) Bipolar disorder Status: Acute Response to Treatment: Improving Discussed With: Nurse, Patient Problem Specific Plan: Monitor Clinically Problem Text: Continue lithium and Zyprexa at this time (2) Methamphetamine abuse Status: Chronic Response to Treatment: Stable (3) Discharge planning issues Problem Specific Plan: Monitor Clinically Plan / VTE VTE Prophylaxis Ordered?: No Plan Diet: Continue Current Activity: Continue Current Anticipated Discharge: Home, Home With Services GERA REESE DO Apr 29, 2020 09:17
[2020-04-29] MEDS: OLANZapine 5 MG TAB PO PRN (13:28)
[2020-04-29] MEDS: ACETAMINOPHEN TAB 650MG DOSE (2X325MG) PO PRN (16:57)
[2020-04-29 17:29] VITALS: BP 122/84
[2020-04-29] MEDS: traZODone 50 MG TAB PO PRN (20:58)
[2020-04-30 06:16] VITALS: BP 129/85
[2020-04-30] MEDS: OLANZapine ORAL DISINTEGRATING TAB 5MG PO SCH ×2 (08:11→20:08)
[2020-04-30] MEDS: LITHIUM CARBONATE 150 MG CAP PO SCH ×2 (08:11→20:07)
[2020-04-30] MEDS: NICOTINE 21MG/24HR 1 EA TRANSDERMAL TD SCH (08:11)
--- NOTE | 2020-04-30 09:43 | MHIPNPDOC ---
[facility] Progress Note Progress Note DOS 04/30/2020 Events Overnight: none Group Attendance:: attends at times Symptom changes (psych ROS): still quite disorganized, but more able to be redirected, she reports she still has some difficulty focusing, but states, "I've always been that way". Staff Report: staff report. The patient is making progress. Although is still quite distorted at this time. She's had no episodes of aggression. Medical ROS: Patient is to unfocused in order to get a full assessment, but generally denies any physical problems at this time MSE: Vitals: Below General: poor Speech: improved Thought processes: improved Thought content: psychotic delusions Abstract reasoning, and computation: impaired Description of associations: improved Description of abnormal or psychotic thoughts: appears to be improving in terms of paranoia Judgment: improving Insight: improving Orientation: Alert and orientated 3 Recent and remote memory: Intact Attention span and concentration: improving Fund of knowledge: unable to determine Mood: "I'm fine" Affect: more appropriate Vital Signs Vital Signs Date Time Temp Pulse Resp B/P (MAP) Pulse Ox O2 Delivery O2 Flow Rate FiO2 04/30/20 06:16 97.3 84 14 129/85 (100) 04/29/20 11:05 Room Air 04/29/20 06:18 96 Current Medications Current Medications Medications (Trade) Dose Ordered Sig/Karl Route PRN Reason Start Time Stop Time Status Last Admin Dose Admin Acetaminophen (Tylenol Tab) 650 mg Q6HP PRN PO HEADACHE or DISCOMFORT 04/22/20 19:15 04/29/20 16:57 Al Hydrox/Mg Hydrox/Simethicone (Mylanta) 30 ml Q4HP PRN PO HEARTBURN/INDIGESTION 04/22/20 19:15 [place] Carbonate ([place] Carbonate) 150 mg BID PO 04/23/20 21:00 04/24/20 10:38 DC 04/24/20 08:05 [place] Carbonate ([place] Carbonate) 300 mg BID PO 04/24/20 21:00 04/27/20 12:18 DC 04/27/20 08:19 [place] Carbonate ([place] Carbonate) 450 mg BID PO 04/27/20 21:00 04/30/20 08:11 Magnesium Hydroxide (Milk Of Magnesia) 30 ml DAILYPRN PRN PO CONSTIPATION 04/22/20 19:15 Nicotine (Nicoderm Cq 21mg) 1 patch DAILY TD 04/23/20 09:00 04/30/20 08:11 Olanzapine (ZyPREXA ZYDIS) 5 mg QAM PO 04/29/20 09:00 04/30/20 08:11 Olanzapine (ZyPREXA ZYDIS) 5 mg QHS PO 04/24/20 21:00 04/27/20 12:17 DC 04/26/20 20:23 Olanzapine (ZyPREXA ZYDIS) 10 mg QHS PO 04/27/20 21:00 04/29/20 20:08 Olanzapine (ZyPREXA) 5 mg Q6HP PRN PO ANXIETY/AGITATION 04/22/20 19:15 04/29/20 13:28 Olanzapine (ZyPREXA) 10 mg BID PO 04/22/20 21:00 04/23/20 10:25 DC 04/22/20 21:43 Trazodone HCl (Desyrel) 50 mg QHSP PRN PO INSOMNIA 04/22/20 19:15 04/29/20 20:58 Allergies Coded Allergies: No Known Allergies (Verified , 04/22/20) Problems (1) Bipolar disorder Status: Acute Response to Treatment: Improving Discussed With: Nurse, Patient Problem Specific Plan: Monitor Clinically Problem Text: continue lithium 450 mg BID, increase Zyprexa 10 mg BID, lithium level tomorrow morning (2) Methamphetamine abuse Status: Chronic Response to Treatment: Stable Problem Text: recommend outpatient addiction treatment (3) Discharge planning issues Problem Specific Plan: Monitor Clinically Problem Text: need to determine current housing situation Plan / VTE VTE Prophylaxis Ordered?: No Plan Diet: Continue Current Activity: Continue Current Anticipated Discharge: Home, Home With Services (unclear discharge date at this time, will monitor each day is approaching stability) GERA REESE DO Apr 30, 2020 09:42
[2020-04-30] MEDS: OLANZapine 5 MG TAB PO PRN (13:02)
[2020-04-30] MEDS: ACETAMINOPHEN TAB 650MG DOSE (2X325MG) PO PRN (13:02)
[2020-04-30 17:30] VITALS: BP 153/87
[2020-04-30] MEDS: traZODone 50 MG TAB PO PRN (21:02)
[2020-05-01 06:25] VITALS: BP 146/86
[2020-05-01] MEDS: ACETAMINOPHEN TAB 650MG DOSE (2X325MG) PO PRN (08:43)
[2020-05-01] MEDS: OLANZapine ORAL DISINTEGRATING TAB 5MG PO SCH ×2 (08:43→20:05)
[2020-05-01] MEDS: NICOTINE 21MG/24HR 1 EA TRANSDERMAL TD SCH (08:45)
[2020-05-01] MEDS: LITHIUM CARBONATE 150 MG CAP PO SCH ×2 (08:45→20:04)
--- NOTE | 2020-05-01 10:05 | MHIPNPDOC ---
[facility] Progress Note Progress Note DOS 05/01/2020 Patient met with today with nurse present for telehealth evaluation due to COVID Crisis Events Overnight: none Group Attendance::[frequent] Symptom changes (psych ROS): Affective: denies, but is still somewhat elevated and rapid and speech Psychotic: reports voices or less, but still present Anxiety: reports feeling anxious about being here Staff Report: staff of notice discreet improvements in the patient presentation, however she is still quite elevated and talkative. She ends the interview, after only a few minutes as she really wants to go and when this is not dollars she leaves. Medical ROS: Patient leaves before questions can be asked MSE: Vitals: Below General: poor Speech: rapid Thought processes: tangential Thought content: psychotic delusions Abstract reasoning, and computation: impaired Description of associations: imparied Description of abnormal or psychotic thoughts:Unclear, appears to have psychotic processes going on. Judgment: poor Insight: poor Orientation: Alert and orientated 3 Recent and remote memory: Intact Attention span and concentration: impaired secondary to thought process Fund of knowledge: unable to determine Mood: "tires" Affect: flat, little reactivity Vital Signs Vital Signs Date Time Temp Pulse Resp B/P (MAP) Pulse Ox O2 Delivery O2 Flow Rate FiO2 05/01/20 06:25 97.4 71 12 146/86 (106) 98 Room Air Laboratory Data 24H Labs Laboratory Tests 2 05/01/20 06:56: [place] Level 0.57L Current Medications Current Medications Medications (Trade) Dose Ordered Sig/Karl Route PRN Reason Start Time Stop Time Status Last Admin Dose Admin Acetaminophen (Tylenol Tab) 650 mg Q6HP PRN PO HEADACHE or DISCOMFORT 04/22/20 19:15 05/01/20 08:43 Al Hydrox/Mg Hydrox/Simethicone (Mylanta) 30 ml Q4HP PRN PO HEARTBURN/INDIGESTION 04/22/20 19:15 [place] Carbonate ([place] Carbonate) 150 mg BID PO 04/23/20 21:00 04/24/20 10:38 DC 04/24/20 08:05 [place] Carbonate ([place] Carbonate) 300 mg BID PO 04/24/20 21:00 04/27/20 12:18 DC 04/27/20 08:19 [place] Carbonate ([place] Carbonate) 450 mg BID PO 04/27/20 21:00 05/01/20 08:45 Magnesium Hydroxide (Milk Of Magnesia) 30 ml DAILYPRN PRN PO CONSTIPATION 04/22/20 19:15 Nicotine (Nicoderm Cq 21mg) 1 patch DAILY TD 04/23/20 09:00 05/01/20 08:45 Olanzapine (ZyPREXA ZYDIS) 5 mg QAM PO 04/29/20 09:00 04/30/20 10:17 DC 04/30/20 08:11 Olanzapine (ZyPREXA ZYDIS) 5 mg QHS PO 04/24/20 21:00 04/27/20 12:17 DC 04/26/20 20:23 Olanzapine (ZyPREXA ZYDIS) 10 mg QAM PO 05/01/20 09:00 05/01/20 08:43 Olanzapine (ZyPREXA ZYDIS) 10 mg QHS PO 04/27/20 21:00 04/30/20 20:08 Olanzapine (ZyPREXA) 5 mg Q6HP PRN PO ANXIETY/AGITATION 04/22/20 19:15 04/30/20 13:02 Olanzapine (ZyPREXA) 10 mg BID PO 04/22/20 21:00 04/23/20 10:25 DC 04/22/20 21:43 Trazodone HCl (Desyrel) 50 mg QHSP PRN PO INSOMNIA 04/22/20 19:15 04/30/20 21:02 Allergies Coded Allergies: No Known Allergies (Verified , 04/22/20) Problems (1) Bipolar disorder Status: Acute Response to Treatment: Improving Discussed With: Nurse, Patient Problem Specific Plan: Monitor Clinically Problem Text: continue lithium 450 mg BID and Zyprexa 10 mg BID, lithium level today. still sub therapeutic but will take some time to reach steady-state (2) Methamphetamine abuse Status: Chronic Response to Treatment: Stable Problem Text: recommend outpatient addiction treatment (3) Discharge planning issues Problem Specific Plan: Monitor Clinically Problem Text: need to determine current housing situation Plan / VTE VTE Prophylaxis Ordered?: No Plan Diet: Continue Current Activity: Continue Current Anticipated Discharge: Home, Home With Services (unclear discharge date at this time, will monitor each day is approaching stability) GERA REESE DO May 01, 2020 10:05
[2020-05-01] MEDS ORDERED: CEPACOL LOZENGE PO PRN (10:45)
[2020-05-01] MEDS ORDERED: OXYMETAZOLINE NASAL SPRAY (AFRIN) PRN (10:45)
[2020-05-01] MEDS: OLANZapine 5 MG TAB PO PRN (13:37)
[2020-05-01 18:01] VITALS: BP 110/78
[2020-05-01 18:02] VITALS: BP 144/104
[2020-05-01] MEDS: traZODone 50 MG TAB PO PRN (21:30)
[2020-05-02 06:15] VITALS: BP_SYST 120; BP_SYST 151; BP_DIAS 109; BP_DIAS 76
[2020-05-02 06:32] VITALS: BP 120/76
[2020-05-02] MEDS: OLANZapine ORAL DISINTEGRATING TAB 5MG PO SCH ×2 (08:01→20:09)
[2020-05-02] MEDS: LITHIUM CARBONATE 150 MG CAP PO SCH ×2 (08:01→20:10)
[2020-05-02] MEDS: NICOTINE 21MG/24HR 1 EA TRANSDERMAL TD SCH (08:03)
[2020-05-02] MEDS: OLANZapine 5 MG TAB PO PRN (12:52)
[2020-05-02] MEDS: ACETAMINOPHEN TAB 650MG DOSE (2X325MG) PO PRN (13:59)
[2020-05-02 16:03] VITALS: BP 136/88
[2020-05-02] MEDS: traZODone 50 MG TAB PO PRN (20:09)
[2020-05-03 06:39] VITALS: BP 138/91
[2020-05-03] MEDS: NICOTINE 21MG/24HR 1 EA TRANSDERMAL TD SCH (07:59)
[2020-05-03] MEDS: OLANZapine ORAL DISINTEGRATING TAB 5MG PO SCH ×2 (07:59→20:09)
[2020-05-03] MEDS: LITHIUM CARBONATE 150 MG CAP PO SCH ×2 (08:03→20:09)
[2020-05-03] MEDS: OLANZapine 5 MG TAB PO PRN (13:02)
[2020-05-03 15:54] VITALS: BP 134/90
[2020-05-03] MEDS: ACETAMINOPHEN TAB 650MG DOSE (2X325MG) PO PRN (18:46)
[2020-05-03] MEDS: traZODone 50 MG TAB PO PRN (20:09)
[2020-05-04 06:02] VITALS: BP 127/82
[2020-05-04] MEDS: OLANZapine ORAL DISINTEGRATING TAB 5MG PO SCH ×2 (08:16→20:14)
[2020-05-04] MEDS: LITHIUM CARBONATE 150 MG CAP PO SCH (08:18)
[2020-05-04] MEDS: NICOTINE 21MG/24HR 1 EA TRANSDERMAL TD SCH (09:00)
--- NOTE | 2020-05-04 10:04 | MHIPNPDOC ---
[facility] Progress Note Progress Note DOS: 05/04/2020 Patient met with today with nurse present for telehealth evaluation due to COVID Crisis Events Overnight:[none] Group Attendance::[frequent] Symptom changes (psych ROS): Affective: still quite manic and rapid Psychotic: paranoid at times Anxiety:. Denies Staff Report: still quite labile laughing and crying the same sentence Medical ROS: leaves before questions to be asked MSE: Vitals: Below General: poor Speech: rapid Thought processes: tangential Thought content: psychotic delusions Abstract reasoning, and computation: impaired Description of associations: imparied Description of abnormal or psychotic thoughts:Unclear, appears to have psychotic processes going on. Judgment: poor Insight: poor Orientation: Alert and orientated 3 Recent and remote memory: Intact Attention span and concentration: impaired secondary to thought process Fund of knowledge: unable to determine Mood: "can I go" Affect: flat, little reactivity Vital Signs Vital Signs Date Time Temp Pulse Resp B/P (MAP) Pulse Ox O2 Delivery O2 Flow Rate FiO2 05/04/20 06:02 97.8 83 14 127/82 (97) 05/03/20 10:12 Room Air 05/03/20 06:39 97 Current Medications Current Medications Medications (Trade) Dose Ordered Sig/Karl Route PRN Reason Start Time Stop Time Status Last Admin Dose Admin Acetaminophen (Tylenol Tab) 650 mg Q6HP PRN PO HEADACHE or DISCOMFORT 04/22/20 19:15 05/03/20 18:46 Al Hydrox/Mg Hydrox/Simethicone (Mylanta) 30 ml Q4HP PRN PO HEARTBURN/INDIGESTION 04/22/20 19:15 Cetylpyridinium Chloride (Cepacol) 1 jono Q2HP PRN PO COUGH 05/01/20 10:45 05/01/20 10:57 DC [place] Carbonate ([place] Carbonate) 150 mg BID PO 04/23/20 21:00 04/24/20 10:38 DC 04/24/20 08:05 [place] Carbonate ([place] Carbonate) 300 mg BID PO 04/24/20 21:00 04/27/20 12:18 DC 04/27/20 08:19 [place] Carbonate ([place] Carbonate) 450 mg BID PO 04/27/20 21:00 05/04/20 08:18 Magnesium Hydroxide (Milk Of Magnesia) 30 ml DAILYPRN PRN PO CONSTIPATION 04/22/20 19:15 Nicotine (Nicoderm Cq 21mg) 1 patch DAILY TD 04/23/20 09:00 05/03/20 07:59 Olanzapine (ZyPREXA ZYDIS) 5 mg QAM PO 04/29/20 09:00 04/30/20 10:17 DC 04/30/20 08:11 Olanzapine (ZyPREXA ZYDIS) 5 mg QHS PO 04/24/20 21:00 04/27/20 12:17 DC 04/26/20 20:23 Olanzapine (ZyPREXA ZYDIS) 10 mg QAM PO 05/01/20 09:00 05/04/20 08:16 Olanzapine (ZyPREXA ZYDIS) 10 mg QHS PO 04/27/20 21:00 05/03/20 20:09 Olanzapine (ZyPREXA) 5 mg Q6HP PRN PO ANXIETY/AGITATION 04/22/20 19:15 05/03/20 13:02 Olanzapine (ZyPREXA) 10 mg BID PO 04/22/20 21:00 04/23/20 10:25 DC 04/22/20 21:43 Oxymetazoline HCl (Afrin) 2 spray BIDP PRN NA stuffiness 05/01/20 10:45 05/01/20 10:57 DC Trazodone HCl (Desyrel) 50 mg QHSP PRN PO INSOMNIA 04/22/20 19:15 05/03/20 20:09 Allergies Coded Allergies: No Known Allergies (Verified , 04/22/20) Problems (1) Bipolar disorder Status: Acute Response to Treatment: Improving Discussed With: Nurse, Patient Problem Specific Plan: Monitor Clinically Problem Text: continue lithium 450 mg BID and Zyprexa 10 mg BID, lithium level today. (2) Methamphetamine abuse Status: Chronic Response to Treatment: Stable Problem Text: recommend outpatient addiction treatment (3) Discharge planning issues Problem Specific Plan: Monitor Clinically Problem Text: need to determine current housing situation Plan / VTE VTE Prophylaxis Ordered?: No Plan Diet: Continue Current Activity: Continue Current Anticipated Discharge: Home, Home With Services (unclear discharge date at this time, will monitor each day is approaching stability) GERA REESE DO May 04, 2020 10:04
[2020-05-04] MEDS: OLANZapine 5 MG TAB PO PRN (13:15)
[2020-05-04] MEDS: LITHIUM CARBONATE 300 MG CAP PO SCH ×2 (15:13→20:14)
[2020-05-04 16:52] VITALS: BP 134/89
[2020-05-04] MEDS: traZODone 50 MG TAB PO PRN (20:14)
[2020-05-05 06:19] VITALS: BP 144/98
[2020-05-05] MEDS: NICOTINE 21MG/24HR 1 EA TRANSDERMAL TD SCH (08:28)
[2020-05-05] MEDS: LITHIUM CARBONATE 300 MG CAP PO SCH ×3 (08:28→20:10)
[2020-05-05] MEDS: OLANZapine ORAL DISINTEGRATING TAB 5MG PO SCH ×2 (08:28→20:10)
--- NOTE | 2020-05-05 09:29 | MHIPNPDOC ---
[facility] Progress Note Progress Note DOS: 05/05/2020 Patient met with today with nurse present for telehealth evaluation due to COVID Crisis Events Overnight: no major issues Group Attendance::[frequent] Symptom changes (psych ROS): Affective: denies Psychotic: still bizarre and kind of paranoid, unable to engage in any realistic and review Anxiety: unable to determine Staff Report: has more lucid moments, but is still quite paranoid around this provider Medical ROS: Patient ends interview prior to questions MSE: Vitals: Below General: poor Speech: rapid Thought processes: tangential Thought content: psychotic delusions Abstract reasoning, and computation: impaired Description of associations: imparied Description of abnormal or psychotic thoughts:Unclear, appears to have psychotic processes going on. Judgment: poor Insight: poor Orientation: Alert and orientated 3 Recent and remote memory: Intact Attention span and concentration: impaired secondary to thought process Fund of knowledge: unable to determine Mood: "court" Affect: flat, little reactivity Vital Signs Vital Signs Date Time Temp Pulse Resp B/P (MAP) Pulse Ox O2 Delivery O2 Flow Rate FiO2 05/05/20 06:19 97.1 65 18 144/98 (113) Room Air 05/03/20 06:39 97 Current Medications Current Medications Medications (Trade) Dose Ordered Sig/Karl Route PRN Reason Start Time Stop Time Status Last Admin Dose Admin Acetaminophen (Tylenol Tab) 650 mg Q6HP PRN PO HEADACHE or DISCOMFORT 04/22/20 19:15 05/03/20 18:46 Al Hydrox/Mg Hydrox/Simethicone (Mylanta) 30 ml Q4HP PRN PO HEARTBURN/INDIGESTION 04/22/20 19:15 Cetylpyridinium Chloride (Cepacol) 1 jono Q2HP PRN PO COUGH 05/01/20 10:45 05/01/20 10:57 DC [place] Carbonate ([place] Carbonate) 150 mg BID PO 04/23/20 21:00 04/24/20 10:38 DC 04/24/20 08:05 [place] Carbonate ([place] Carbonate) 300 mg BID PO 04/24/20 21:00 04/27/20 12:18 DC 04/27/20 08:19 [place] Carbonate ([place] Carbonate) 300 mg TID PO 05/04/20 16:00 05/05/20 08:28 [place] Carbonate ([place] Carbonate) 450 mg BID PO 04/27/20 21:00 05/04/20 11:04 DC 05/04/20 08:18 Magnesium Hydroxide (Milk Of Magnesia) 30 ml DAILYPRN PRN PO CONSTIPATION 04/22/20 19:15 Nicotine (Nicoderm Cq 21mg) 1 patch DAILY TD 04/23/20 09:00 05/03/20 07:59 Olanzapine (ZyPREXA ZYDIS) 5 mg QAM PO 04/29/20 09:00 04/30/20 10:17 DC 04/30/20 08:11 Olanzapine (ZyPREXA ZYDIS) 5 mg QHS PO 04/24/20 21:00 04/27/20 12:17 DC 04/26/20 20:23 Olanzapine (ZyPREXA ZYDIS) 10 mg QAM PO 05/01/20 09:00 05/05/20 08:28 Olanzapine (ZyPREXA ZYDIS) 10 mg QHS PO 04/27/20 21:00 05/04/20 20:14 Olanzapine (ZyPREXA) 5 mg Q6HP PRN PO ANXIETY/AGITATION 04/22/20 19:15 05/04/20 13:15 Olanzapine (ZyPREXA) 10 mg BID PO 04/22/20 21:00 04/23/20 10:25 DC 04/22/20 21:43 Oxymetazoline HCl (Afrin) 2 spray BIDP PRN NA stuffiness 05/01/20 10:45 05/01/20 10:57 DC Trazodone HCl (Desyrel) 50 mg QHSP PRN PO INSOMNIA 04/22/20 19:15 05/04/20 20:14 Allergies Coded Allergies: No Known Allergies (Verified , 04/22/20) Problems (1) Bipolar disorder Status: Acute Response to Treatment: Worse Discussed With: Nurse, Patient Problem Specific Plan: Monitor Clinically Problem Text: Increase lithium to 300 mg TID, continue Zyprexa at current dose (2) Methamphetamine abuse Status: Chronic Response to Treatment: Stable Problem Text: recommend outpatient addiction treatment (3) Discharge planning issues Problem Specific Plan: Monitor Clinically Problem Text: Likely need to look at long-term treatment Plan / VTE VTE Prophylaxis Ordered?: No Plan Diet: Continue Current Activity: Continue Current Anticipated Discharge: Psych (Will pursue long-term treatment) GERA REESE DO May 05, 2020 09:29
[2020-05-05] MEDS: OLANZapine 5 MG TAB PO PRN (13:06)
[2020-05-05] MEDS: ACETAMINOPHEN TAB 650MG DOSE (2X325MG) PO PRN (15:10)
[2020-05-05 16:28] VITALS: BP 133/90
[2020-05-05] MEDS: traZODone 50 MG TAB PO PRN (21:01)
[2020-05-06 06:24] VITALS: BP 123/71
[2020-05-06] MEDS: NICOTINE 21MG/24HR 1 EA TRANSDERMAL TD SCH (08:45)
[2020-05-06] MEDS: LITHIUM CARBONATE 300 MG CAP PO SCH ×3 (08:46→21:14)
[2020-05-06] MEDS: OLANZapine ORAL DISINTEGRATING TAB 5MG PO SCH ×2 (08:46→21:14)
[2020-05-06] MEDS: OLANZapine 5 MG TAB PO PRN (10:25)
[2020-05-06] MEDS: traZODone 50 MG TAB PO PRN (21:14)
[2020-05-07 06:35] VITALS: BP 135/89
[2020-05-07] MEDS: OLANZapine ORAL DISINTEGRATING TAB 5MG PO SCH ×2 (08:05→20:24)
[2020-05-07] MEDS: LITHIUM CARBONATE 300 MG CAP PO SCH ×3 (08:05→20:24)
[2020-05-07] MEDS: NICOTINE 21MG/24HR 1 EA TRANSDERMAL TD SCH (08:06)
--- NOTE | 2020-05-07 08:34 | MHIPN ---
VIDEO ASSESSMENT (It is being done because of the virus pandemic, I am assigned to the case). She is seen in the presence of staff. DATE: 05/06/2020 CHIEF COMPLAINT: Says feels good. SUBJECTIVE: Indicates has been feeling good, and that things are improved for her. Says is somewhat bored, but that she tries to keep herself busy. Says she sleeps well, has been eating well. Says has been in touch with her people outside the hospital, some of her support. Says she lives on her own, in a duplex, but that she is close to the other people in the building. Says she has a good appetite. MENTAL STATUS EXAMINATION: She is neat. She is cooperative currently. No agitation at present. No psychomotor retardation. Speech is improved in terms of amount, no formal thought disorder at present. Affect is less labile. Denies any suicidal thoughts or intents. No homicidal ideas or intents. No overt delusions or any psychotic features at present. Cognition grossly intact. Judgment and insight, though improved, remain compromised. ASSESSMENT: Bipolar disorder. Amphetamine use disorder. She is doing better clinically, but probably not stable at present. PLAN: Continue current care, she has been planned for joint terminal attack controller care, but should improvements continue, may need to consider discharging her. I would suggest continuing with the current regimen, including lithium carbonate 900 mg a day in divided doses, olanzapine 20 mg a day in divided doses. Encourage participation in activity in the unit. Inquire about services in place, should it come to discharge. Further recommendations will be made depending on the clinical picture. VITAL SIGNS: These are as listed. Blood pressure 123/71. Pulse 82. Temperature 98.4.
[2020-05-07] MEDS: OLANZapine 5 MG TAB PO PRN (13:12)
[2020-05-07] MEDS: ACETAMINOPHEN TAB 650MG DOSE (2X325MG) PO PRN (15:11)
[2020-05-07 17:53] VITALS: BP 140/78
--- NOTE | 2020-05-07 18:54 | MHIPN ---
DATE: 05/07/2020 VITAL SIGNS: Blood pressure 135/89, pulse 71, temperature 97.8. CHIEF COMPLAINT: She says feels good. SUBJECTIVE: Seen for followup. This is a telehealth video assessment. She is seen in the presence of staff. Says feels good. Moods have been good. Slept well. Appetite is good. Says is in touch with her clay pigeon loader. Says they are in touch regularly. MENTAL STATUS EXAMINATION: She is neat. She is cooperative. There is no agitation. No psychomotor retardation. Affect reactive, less labile. Coherent. Denies any thoughts of harming herself or anyone else. No overt delusions elicited. Cognition is grossly intact. Judgment and insight are improved. ASSESSMENT: 1. Bipolar disorder, most recent episode manic with psychotic features. 2. Amphetamine use disorder. Clinically improved. Continues to improve. PLAN: Continue current care, including lithium carbonate, olanzapine. Should this progress continue, consider discharge shortly. Would suggest obtaining a lithium level prior to discharge. She has been on an increased dose of lithium the last few days, as far as I can tell. Last level done was about 6 days ago. She will be seeing the assigned psychiatrist tomorrow. Further recommendations will be made.
[2020-05-07] MEDS: traZODone 50 MG TAB PO PRN (20:23)
[2020-05-08 06:50] VITALS: BP 135/91
[2020-05-08] MEDS: NICOTINE 21MG/24HR 1 EA TRANSDERMAL TD SCH (08:28)
[2020-05-08] MEDS: OLANZapine ORAL DISINTEGRATING TAB 5MG PO SCH ×2 (08:29→20:33)
[2020-05-08] MEDS: LITHIUM CARBONATE 300 MG CAP PO SCH ×3 (08:29→20:33)
[2020-05-08 17:16] VITALS: BP 124/85
--- NOTE | 2020-05-08 17:36 | MHIPN ---
DATE: 05/08/2020 This is a video appointment, being done because of the virus pandemic. She is aware of it, agrees to it. She is seen in the presence of staff. VITAL SIGNS: Blood pressure 135/91, pulse 69, temperature 97.6. CHIEF COMPLAINT: Says feels good. SUBJECTIVE: She is seen for followup. She says she has been feeling good and does not have any racing thoughts. She indicates she slept well, has been in touch with her case specialist. She says moods are good, as is appetite. MENTAL STATUS EXAM: She is neat. She is cooperative. There is no agitation. No psychomotor retardation. Affect remains reactive overall, and there is less lability. She is coherent. Denies any thoughts of harming herself or anyone else. There are no overt delusions elicited. Cognition is grossly intact. Judgment and insight improved. ASSESSMENT: Bipolar disorder, most recent episode manic with psychotic features. Amphetamine use disorder. She is improved clinically, and has been doing well. PLAN: She is to continue current care, and if progress is continued, would suggest considering discharge in the near future. She will be seeing the psychiatrist utility worker production tomorrow.
[2020-05-08] MEDS: traZODone 50 MG TAB PO PRN (20:33)
[2020-05-09 06:22] VITALS: BP 135/73
[2020-05-09] MEDS: OLANZapine ORAL DISINTEGRATING TAB 5MG PO SCH ×2 (08:07→20:37)
[2020-05-09] MEDS: LITHIUM CARBONATE 300 MG CAP PO SCH ×3 (08:07→20:37)
[2020-05-09] MEDS: NICOTINE 21MG/24HR 1 EA TRANSDERMAL TD SCH (08:08)
[2020-05-09] MEDS: ACETAMINOPHEN TAB 650MG DOSE (2X325MG) PO PRN (15:16)
[2020-05-09 16:20] VITALS: BP 133/82
[2020-05-09] MEDS: traZODone 50 MG TAB PO PRN (20:37)
[2020-05-10 06:26] VITALS: BP 124/82
[2020-05-10] MEDS: LITHIUM CARBONATE 300 MG CAP PO SCH ×3 (08:03→20:45)
[2020-05-10] MEDS: NICOTINE 21MG/24HR 1 EA TRANSDERMAL TD SCH (08:03)
[2020-05-10] MEDS: OLANZapine ORAL DISINTEGRATING TAB 5MG PO SCH ×2 (08:03→20:45)
[2020-05-10 16:21] VITALS: BP 120/74
[2020-05-10] MEDS: traZODone 50 MG TAB PO PRN (20:45)
[2020-05-11 06:44] VITALS: BP 131/91
[2020-05-11] MEDS: NICOTINE 21MG/24HR 1 EA TRANSDERMAL TD SCH (07:42)
[2020-05-11] MEDS: LITHIUM CARBONATE 300 MG CAP PO SCH ×3 (08:01→20:14)
[2020-05-11] MEDS: OLANZapine ORAL DISINTEGRATING TAB 5MG PO SCH ×2 (08:03→20:14)
[2020-05-11] MEDS: OLANZapine 5 MG TAB PO PRN (14:26)
[2020-05-11] MEDS: ACETAMINOPHEN TAB 650MG DOSE (2X325MG) PO PRN (14:26)
[2020-05-11 15:37] VITALS: BP 149/83
[2020-05-11] MEDS: traZODone 50 MG TAB PO PRN (20:14)
[2020-05-12 06:00] VITALS: BP 134/76
[2020-05-12] MEDS: NICOTINE 21MG/24HR 1 EA TRANSDERMAL TD SCH (08:01)
[2020-05-12] MEDS: LITHIUM CARBONATE 300 MG CAP PO SCH (08:02)
[2020-05-12] MEDS: OLANZapine ORAL DISINTEGRATING TAB 5MG PO SCH (08:03)
--- NOTE | 2020-05-12 09:23 | MHDSPDOC ---
[facility] Discharge Summary Discharge Summary DATE OF ADMISSION: April 22, 2020 at 19:09 DATE OF DISCHARGE:May 12, 2020 at 13:18 DISCHARGE DIAGNOSES: See Problem list below REASON FOR ADMISSION: 39-year-old woman initially presents intoxicated methamphetamines, how after this resolves it becomes quite apparent that she has a full-blown manic episode CONSULTANTS INVOLVED:[ None (basic hospitalist screening)] TREATMENT AND PROGRESS ON THE UNIT : Medication changes: initially started on Zyprexa increased to a total of 10 mg BID additionally start on lithium increased to a total 300 TID with positive results. After several weeks, she had a fairly protective course in terms or symptoms Behavior on unit: even when distorted, she was still friendly and amenable, although so pressured and coherent. It was hard to understand her until she resolved Treatment attendance: attended well Notable issues on presentation:, there was a point at which we were going to pursue long-term treatment and even treatment of her objection, however, the patient improved and her insight improved as well, allowing her to cooperate with us enough to improve her to the point of basic stability State on discharge: [improved] DISCHARGE ASSESSMENT: The patient a 39 year old woman, with likely, bipolar disorder, presented to [facility], where they, treated with appropriate agents, but taken extensive period of time to resolve. Legal status considerations: The patient at the time of discharge did not meet criteria for involuntary admission/extension due to having a much improved mental status exam, [fair] insight into the situation, They are engaged in the discharge process, as well as being friendly and amenable in behavioral control and havent been engaging in any observed concerning behavior or ideation recently. They decline voluntary extension/admission at this time and must be discharged in good jacqueline, as Im unable to make a case for holding the patient against their will. They may have historical risk factors of admissions and other interactions with psychiatry however, those are not modifiable from a clinical perspective. The patient will need to be discharged in good jacqueline. MENTAL STATUS EXAMINATION ON DISCHARGE: General: [Well dressed with good hygiene] Speech: much more fluid Thought processes: [Linear and logical] Thought content: [Future orientated] Abstract reasoning, and computation: [Intact] Description of associations: [Intact] Description of abnormal or psychotic thoughts:[Denies any suicidal or homicidal ideation. Denies any auditory or visual hallucinations. Does not appear to be responding to internal stimuli. Does not appear to be endorsing any bizarre or paranoid ideation.] Judgment: improved greatly Insight: improved greatly Orientation: [Alert and orientated 3] Recent and remote memory: [Intact] Attention span and concentration: [Intact] Fund of knowledge: [Adequate] Mood: ["okay"] Affect: [Euthymic with a full range] PLAN/FOLLOWUP ARRANGEMENTS: Follow up appointments made (PCP and MH in 5 days of D/C date) and safety plan completed. Safety Planning aspects completed prior to discharge [SAFE ACT reported on initial invol admission in ER] [Medication supplies limited to 7 days with 4 refills to prevent accumulation to OD] [Family/manager of financialcar rental manager completed, educated on safe practices, instructed on removal and mitigation of dangerous means] [RN reviewed crisis hotline information and other aspects to empower patient to access care in interim before next appointment.] The amount of time spent in the coordination of care for this patient was approximately 30 minutes. Vital Signs/I&Os Vital Signs Date Time Temp Pulse Resp B/P (MAP) Pulse Ox O2 Delivery O2 Flow Rate FiO2 05/12/20 06:00 97.5 79 16 134/76 (95) 99 Room Air Medications Scheduled [place] Carbonate ([place] Carbonate) 300 Mg Capsule, 300 MG PO TID for mood for 7 Days, #21 Nicotine (Nicotine Patch) 21 Mg Patch.td24, 1 PATCH TD DAILY for tobacco for 30 Days, #30 Olanzapine (Olanzapine) 20 Mg Tablet, 0.5 TAB PO BID for mood for 7 Days, #7 Allergies Coded Allergies: No Known Allergies (Verified , 04/22/20) Problems (1) Bipolar disorder Status: Chronic Response to Treatment: Stable (2) Methamphetamine abuse Status: Chronic Response to Treatment: Stable Plan / VTE VTE Prophylaxis Ordered?: No GERA REESE DO May 12, 2020 09:23
[2020-05-12] MEDS ORDERED: LITH300C PO (10:22)
[2020-05-12] MEDS ORDERED: OLAN10TA2 PO (10:22)
[2020-05-12] MEDS ORDERED: NICO21PAT TD (10:22)
[2020-05-13] MEDS ORDERED: OLAN20TA14 PO (11:13)
== END 2020-05-12 13:18 | disposition home or self-care (01) | DRG 753 ==
LOC: M ED 12:44 → M ED INP 19:09 → M PSY 21:22
PROVIDERS: ADMIT Psychiatry & Neurology Psychiatry; ATTEND Psychiatry & Neurology Addiction Medicine
DX: F31.2 Bipolar disorder, current episode manic severe with psychotic features (principal); F15.10 Other stimulant abuse, uncomplicated

== ENCOUNTER → 2020-08-06 | Outpatient (CLI) | payer OTHER ==
[~2020-08-06] MED LIST changes: +NICO21PAT TD; +OLAN10TA2 PO; +OLAN20TA14 PO
== END ==
LOC: M LAB 10:55
PROVIDERS: ATTEND Nurse Practitioner Psychiatric/Mental Health
DX: F31.32 Bipolar disorder, current episode depressed, moderate (principal)

== ENCOUNTER → 2020-08-21 | Outpatient (CLI) | payer OTHER | LOC: M LAB 09:49 | PROVIDERS: ATTEND Nurse Practitioner Psychiatric/Mental Health | DX: F31.9 Bipolar disorder, unspecified (principal); Z79.899 Other long term (current) drug therapy ==

== ENCOUNTER → 2020-09-09 | Outpatient (CLI) | payer OTHER | LOC: M LAB 08:34 | PROVIDERS: ATTEND Nurse Practitioner Psychiatric/Mental Health | DX: F31.9 Bipolar disorder, unspecified (principal) ==

== ENCOUNTER → 2020-09-21 | Outpatient (CLI) | payer OTHER | LOC: M LAB 10:49 | PROVIDERS: ATTEND Nurse Practitioner Psychiatric/Mental Health | DX: F31.9 Bipolar disorder, unspecified (principal) ==

== ENCOUNTER → 2020-10-19 | Outpatient (CLI) | payer OTHER | LOC: M LAB 09:49 | PROVIDERS: ATTEND Nurse Practitioner Psychiatric/Mental Health | DX: F31.9 Bipolar disorder, unspecified (principal) ==

== ENCOUNTER → 2020-11-03 | Outpatient (CLI) | payer OTHER | LOC: M LAB 10:11 | PROVIDERS: ATTEND Nurse Practitioner Psychiatric/Mental Health | DX: F31.9 Bipolar disorder, unspecified (principal); Z79.899 Other long term (current) drug therapy ==

== ENCOUNTER → 2021-07-16 | Outpatient (CLI) | payer OTHER ==
[~2021-07-16] MED LIST changes: -ARIP1TAB2 PO; +ARIP1TAB43 PO; -OLAN10TA2 PO; +OLAN1TAB20 PO
[2021-07-16 11:33] LABS: HEMOGLOBIN A1c 5.6 %
[2021-07-16 11:39] LABS: HEMATOCRIT 38.8 % (36.0-47.0); HEMOGLOBIN 11.9 g/dl (12.0-15.5); MEAN CORPUSCULAR HEMOGLOBIN 28.9 pg (27.0-33.0); MEAN CORPUSCULAR HGB CONC 30.7 g/dl (32.0-36.5); MEAN CORPUSCULAR VOLUME 94.2 fl (80.0-96.0); PLATELET COUNT, AUTOMATED 209 10^3/uL (150-450); RED BLOOD COUNT 4.12 10^6/uL (4.00-5.40); WHITE BLOOD COUNT 8.6 10^3/uL (4.0-10.0)
[2021-07-16 11:46] LABS: ALT/SGPT 22 U/L (12-78); BILIRUBIN,TOTAL 0.7 MG/DL (0.2-1.0); BLOOD UREA NITROGEN 13 MG/DL (7-18); CALCIUM LEVEL 9.7 MG/DL (8.5-10.1); CARBON DIOXIDE LEVEL 29 MEQ/L (21-32); CHLORIDE LEVEL 109 MEQ/L (98-107); CHOLESTEROL LEVEL 238 MG/DL (<200); CHOLESTEROL RISK RATIO 3.216 (<5); CREATININE FOR GFR 0.88 MG/DL (0.55-1.30); GLOMERULAR FILTRATION RATE > 60.0 (>58); GLUCOSE, FASTING 92 MG/DL (70-100); HDL CHOLESTEROL 74 MG/DL (>40); LDL CHOLESTEROL 137 MG/DL (<100); LITHIUM LEVEL 0.79 MEQ/L (0.60-1.20); NON-HDL-C 164 MG/DL; POTASSIUM SERUM 4.2 MEQ/L (3.5-5.1); SODIUM LEVEL 142 MEQ/L (136-145); TOTAL 25(OH) VITAMIN D 28.8 NG/ML (30.0-100.0); TOTAL PROTEIN 7.2 GM/DL (6.4-8.2); TRIGLYCERIDES LEVEL 135 MG/DL (<150)
== END ==
LOC: M LAB 10:46
PROVIDERS: ATTEND Nurse Practitioner Psychiatric/Mental Health
DX: F31.32 Bipolar disorder, current episode depressed, moderate (principal); F41.9 Anxiety disorder, unspecified

== ENCOUNTER 2022-09-07 14:59 | Inpatient (IN) | payer OTHER ==
[~2022-09-07] VITALS: Ht 152.4 cm; Wt 86.7 kg
[2022-09-07] MEDS ORDERED: HOME MED LIST COMPLETE! XX SCH (16:20)
[2022-09-07 17:29] LABS: HEMATOCRIT 40.9 % (36.0-47.0); HEMOGLOBIN 12.9 g/dl (12.0-15.5); MEAN CORPUSCULAR HGB CONC 31.5 g/dl (32.0-36.5); MEAN CORPUSCULAR VOLUME 85.7 fl (80.0-96.0); PLATELET COUNT, AUTOMATED 247 10^3/uL (150-450); RED BLOOD COUNT 4.77 10^6/uL (4.00-5.40); WHITE BLOOD COUNT 7.5 10^3/uL (4.0-10.0)
[2022-09-07 17:55] LABS: RSV AMPLIFICATION NEGATIVE (NEGATIVE)
[2022-09-07 18:09] LABS: ACETAMINOPHEN LEVEL < 2.0 UG/ML (10.0-30.0); ALBUMIN 3.9 GM/DL (3.2-5.2); ALT/SGPT 25 U/L (12-78); BILIRUBIN,DIRECT 0.1 MG/DL (0.0-0.2); BILIRUBIN,TOTAL 0.7 MG/DL (0.2-1.0); BLOOD UREA NITROGEN 16 MG/DL (7-18); CALCIUM LEVEL 9.4 MG/DL (8.5-10.1); CARBON DIOXIDE LEVEL 26 MEQ/L (21-32); CHLORIDE LEVEL 107 MEQ/L (98-107); CREATININE FOR GFR 0.64 MG/DL (0.55-1.30); ETHYL ALCOHOL (ETHANOL) < 0.003 % (0.000-0.010); GLOMERULAR FILTRATION RATE > 60.0 (>58); GLUCOSE, FASTING 89 MG/DL (70-100); POTASSIUM SERUM 4.2 MEQ/L (3.5-5.1); SALICYLATE LEVEL 1.7 MG/DL (5.0-30.0); SODIUM LEVEL 139 MEQ/L (136-145); TOTAL PROTEIN 7.6 GM/DL (6.4-8.2)
[2022-09-07 18:10] LABS: AMPHETAMINES LEVEL URINE POSITIVE (NEGATIVE); BARBITURATES URINE NEGATIVE (NEGATIVE); BENZODIAZEPINES URINE NEGATIVE (NEGATIVE); CANNABINOIDS URINE POSITIVE (NEGATIVE); COCAINE METABOLITE URINE NEGATIVE (NEGATIVE); METHADONE URINE NEGATIVE (NEGATIVE); OPIATES URINE NEGATIVE (NEGATIVE); PHENCYCLIDINE URINE NEGATIVE (NEGATIVE)
[2022-09-07 18:16] LABS: HCG, SERUM QUALITATIVE NEGATIVE (NEGATIVE)
[2022-09-08] MEDS: NICOTINE 21MG/24HR 1 EA TRANSDERMAL TD SCH (09:00)
[2022-09-08] MEDS ORDERED: IBUPROFEN 400MG TAB PO PRN (13:05)
[2022-09-08] MEDS ORDERED: MAALOX 30 ML SUSP *UDC PO PRN (13:05)
[2022-09-08] MEDS ORDERED: MOM 30ML SUSPENSION UDC PO PRN (13:05)
[2022-09-08 18:51] VITALS: BP 130/88
[2022-09-09 06:00] VITALS: BP 147/93
[2022-09-09] MEDS ORDERED: INFLUENZA QUADRIVALENT PF VACCINE 0.5ML SYRINGE IM.IMMUN ONE (09:00)
[2022-09-09] MEDS: NICOTINE 21MG/24HR 1 EA TRANSDERMAL TD SCH (09:00)
[2022-09-09] MEDS: PALIPERIDONE 3 MG ER TAB (INVEGA) PO SCH ×2 (09:14→20:56)
[2022-09-09 15:41] LABS: FREE T4 0.59 NG/DL (0.76-1.46); FREE THYROXINE INDEX 1.2 % (1.3-4.8); THYROID STIMULATING HORMONE 36.4 uIU/ML (0.358-3.740)
[2022-09-09 16:08] VITALS: BP 140/70
[2022-09-10] MEDS: LEVOTHYROXINE 50MCG TABLET (0.05MG) PO SCH (05:47)
[2022-09-10 06:12] VITALS: BP 140/90
[2022-09-10 08:49] LABS: CHOLESTEROL RISK RATIO 2.604 (<5)
[2022-09-10] MEDS: NICOTINE 21MG/24HR 1 EA TRANSDERMAL TD SCH (09:00)
[2022-09-10] MEDS: PALIPERIDONE 3 MG ER TAB (INVEGA) PO SCH ×2 (09:49→20:19)
[2022-09-10] MEDS: DIVALPROEX 250MG *ER* TAB PO SCH ×2 (10:24→20:19)
[2022-09-10 16:19] VITALS: BP 133/82
[2022-09-11] MEDS: LEVOTHYROXINE 50MCG TABLET (0.05MG) PO SCH (06:11)
[2022-09-11 06:30] VITALS: BP 140/79
[2022-09-11] MEDS: PALIPERIDONE 3 MG ER TAB (INVEGA) PO SCH ×2 (08:14→20:26)
[2022-09-11] MEDS: DIVALPROEX 250MG *ER* TAB PO SCH ×2 (08:14→20:26)
[2022-09-11] MEDS: NICOTINE 21MG/24HR 1 EA TRANSDERMAL TD SCH (08:15)
[2022-09-11 16:08] VITALS: BP 137/84
[2022-09-11] MEDS: traZODone 50 MG TAB PO PRN (20:26)
[2022-09-12] MEDS: LEVOTHYROXINE 50MCG TABLET (0.05MG) PO SCH (06:01)
[2022-09-12 06:22] VITALS: BP 140/81
[2022-09-12] MEDS: DIVALPROEX 250MG *ER* TAB PO SCH (08:34)
[2022-09-12] MEDS: PALIPERIDONE 3 MG ER TAB (INVEGA) PO SCH ×2 (08:34→20:41)
[2022-09-12] MEDS: NICOTINE 21MG/24HR 1 EA TRANSDERMAL TD SCH (08:34)
[2022-09-12 18:05] VITALS: BP 131/73
[2022-09-12] MEDS: traZODone 50 MG TAB PO PRN (20:41)
[2022-09-12] MEDS: DIVALPROEX 500 MG TAB PO SCH (20:41)
[2022-09-13] MEDS: LEVOTHYROXINE 50MCG TABLET (0.05MG) PO SCH (05:46)
[2022-09-13 06:30] VITALS: BP 140/89
[2022-09-13] MEDS: DIVALPROEX 250MG *ER* TAB PO SCH (08:18)
[2022-09-13] MEDS: PALIPERIDONE 3 MG ER TAB (INVEGA) PO SCH ×2 (08:18→20:40)
[2022-09-13] MEDS: NICOTINE 21MG/24HR 1 EA TRANSDERMAL TD SCH (08:19)
[2022-09-13 18:01] VITALS: BP 127/90
[2022-09-13] MEDS: traZODone 50 MG TAB PO PRN (20:40)
[2022-09-13] MEDS: DIVALPROEX 500 MG TAB PO SCH (20:40)
[2022-09-14] MEDS: LEVOTHYROXINE 50MCG TABLET (0.05MG) PO SCH (05:36)
[2022-09-14] MEDS: PALIPERIDONE 3 MG ER TAB (INVEGA) PO SCH ×2 (08:42→20:45)
[2022-09-14] MEDS: NICOTINE 21MG/24HR 1 EA TRANSDERMAL TD SCH (08:42)
[2022-09-14] MEDS: DIVALPROEX 500 MG TAB PO SCH ×2 (10:26→20:45)
[2022-09-14 17:47] VITALS: BP 146/70
[2022-09-14] MEDS: traZODone 50 MG TAB PO PRN (20:47)
[2022-09-15] MEDS: LEVOTHYROXINE 50MCG TABLET (0.05MG) PO SCH (05:40)
[2022-09-15 06:02] VITALS: BP 140/80
[2022-09-15] MEDS: PALIPERIDONE 3 MG ER TAB (INVEGA) PO SCH (08:33)
[2022-09-15] MEDS: DIVALPROEX 500 MG TAB PO SCH ×2 (08:33→20:29)
[2022-09-15] MEDS: NICOTINE 21MG/24HR 1 EA TRANSDERMAL TD SCH (08:34)
[2022-09-15 18:10] VITALS: BP 136/83
[2022-09-15] MEDS: PALIPERIDONE 6 MG ER TAB (INVEGA) PO SCH (20:28)
[2022-09-16] MEDS: LEVOTHYROXINE 125MCG TABLET (0.125MG) PO SCH (05:47)
[2022-09-16 06:17] VITALS: BP 135/94
[2022-09-16] MEDS: PALIPERIDONE 3 MG ER TAB (INVEGA) PO SCH (08:23)
[2022-09-16] MEDS: NICOTINE 21MG/24HR 1 EA TRANSDERMAL TD SCH (08:23)
[2022-09-16] MEDS: DIVALPROEX 500 MG TAB PO SCH ×2 (08:23→20:31)
[2022-09-16] MEDS: OLANZapine ORAL DISINTEGRATING TAB 5MG PO PRN (11:44)
[2022-09-16 17:59] VITALS: BP 143/67
[2022-09-16] MEDS: PALIPERIDONE 6 MG ER TAB (INVEGA) PO SCH (20:31)
[2022-09-17] MEDS: LEVOTHYROXINE 125MCG TABLET (0.125MG) PO SCH (05:48)
[2022-09-17 07:01] VITALS: BP 133/86
[2022-09-17] MEDS: NICOTINE 21MG/24HR 1 EA TRANSDERMAL TD SCH (08:25)
[2022-09-17] MEDS: DIVALPROEX 500 MG TAB PO SCH ×2 (08:27→20:47)
[2022-09-17] MEDS: PALIPERIDONE 3 MG ER TAB (INVEGA) PO SCH (08:27)
[2022-09-17 18:00] VITALS: BP 136/87
[2022-09-17] MEDS: PALIPERIDONE 6 MG ER TAB (INVEGA) PO SCH (20:46)
[2022-09-17] MEDS: OLANZapine ORAL DISINTEGRATING TAB 5MG PO PRN (22:32)
[2022-09-18] MEDS: LEVOTHYROXINE 125MCG TABLET (0.125MG) PO SCH (05:47)
[2022-09-18 06:09] VITALS: BP 122/68
[2022-09-18] MEDS: NICOTINE 21MG/24HR 1 EA TRANSDERMAL TD SCH (08:42)
[2022-09-18] MEDS: PALIPERIDONE 3 MG ER TAB (INVEGA) PO SCH (08:43)
[2022-09-18] MEDS: DIVALPROEX 500 MG TAB PO SCH ×2 (08:44→20:40)
[2022-09-18 18:21] VITALS: BP 117/67
[2022-09-18] MEDS: PALIPERIDONE 6 MG ER TAB (INVEGA) PO SCH (20:39)
[2022-09-19] MEDS: LEVOTHYROXINE 125MCG TABLET (0.125MG) PO SCH (05:33)
[2022-09-19 06:12] VITALS: BP 129/71
[2022-09-19] MEDS: PALIPERIDONE 3 MG ER TAB (INVEGA) PO SCH (08:46)
[2022-09-19] MEDS: DIVALPROEX 500 MG TAB PO SCH (08:46)
[2022-09-19] MEDS: NICOTINE 21MG/24HR 1 EA TRANSDERMAL TD SCH (08:47)
[2022-09-19 16:10] VITALS: BP 136/69
[2022-09-19 16:19] VITALS: BP 132/76
[2022-09-19] MEDS: PALIPERIDONE 6 MG ER TAB (INVEGA) PO SCH (20:23)
[2022-09-19] MEDS ORDERED: DIVALPROEX 250 MG TAB PO SCH (21:00)
[2022-09-20] MEDS: LEVOTHYROXINE 125MCG TABLET (0.125MG) PO SCH (05:56)
[2022-09-20 06:17] VITALS: BP 134/69
[2022-09-20] MEDS: NICOTINE 21MG/24HR 1 EA TRANSDERMAL TD SCH ×2 (09:00→14:23)
[2022-09-20] MEDS: DIVALPROEX 500 MG TAB PO SCH (09:00)
[2022-09-20] MEDS: PALIPERIDONE 3 MG ER TAB (INVEGA) PO SCH (09:15)
[2022-09-20] MEDS: DIVALPROEX 500MG *ER* TAB PO SCH (09:43)
[2022-09-20 16:12] VITALS: BP 134/78
[2022-09-20] MEDS: PALIPERIDONE 6 MG ER TAB (INVEGA) PO SCH (20:57)
[2022-09-20] MEDS: traZODone 50 MG TAB PO PRN (20:58)
[2022-09-20] MEDS: DIVALPROEX 250MG *ER* TAB PO SCH (20:58)
[2022-09-21] MEDS: LEVOTHYROXINE 125MCG TABLET (0.125MG) PO SCH (05:44)
[2022-09-21 06:14] VITALS: BP 130/81
[2022-09-21] MEDS: DIVALPROEX 500MG *ER* TAB PO SCH (08:11)
[2022-09-21] MEDS: PALIPERIDONE 3 MG ER TAB (INVEGA) PO SCH (08:11)
[2022-09-21] MEDS: NICOTINE 21MG/24HR 1 EA TRANSDERMAL TD SCH (08:11)
[2022-09-21 16:30] VITALS: BP 130/73
[2022-09-21] MEDS ORDERED: PALIPERIDONE 6 MG ER TAB (INVEGA) PO SCH (21:00)
[2022-09-21] MEDS: DIVALPROEX 250MG *ER* TAB PO SCH (21:39)
[2022-09-21] MEDS: traZODone 50 MG TAB PO PRN (22:10)
[2022-09-22] MEDS: LEVOTHYROXINE 125MCG TABLET (0.125MG) PO SCH (05:55)
[2022-09-22 06:19] VITALS: BP 133/61
[2022-09-22] MEDS: PALIPERIDONE 3 MG ER TAB (INVEGA) PO SCH (08:27)
[2022-09-22] MEDS: NICOTINE 21MG/24HR 1 EA TRANSDERMAL TD SCH (08:28)
[2022-09-22] MEDS: DIVALPROEX 500MG *ER* TAB PO SCH (08:28)
[2022-09-22 18:08] VITALS: BP 126/80
[2022-09-22] MEDS: DIVALPROEX 250MG *ER* TAB PO SCH (21:39)
[2022-09-22] MEDS: traZODone 50 MG TAB PO PRN (21:39)
[2022-09-23] MEDS: LEVOTHYROXINE 125MCG TABLET (0.125MG) PO SCH (05:46)
[2022-09-23 06:20] VITALS: BP 115/56
[2022-09-23] MEDS: DIVALPROEX 500MG *ER* TAB PO SCH (08:29)
[2022-09-23] MEDS: NICOTINE 21MG/24HR 1 EA TRANSDERMAL TD SCH (08:30)
[2022-09-23] MEDS: OLANZapine 5 MG TAB PO SCH ×2 (09:00→21:00)
[2022-09-23 16:19] VITALS: BP 131/85
[2022-09-23] MEDS: traZODone 50 MG TAB PO PRN (21:34)
[2022-09-23] MEDS: DIVALPROEX 250MG *ER* TAB PO SCH (21:34)
[2022-09-24] MEDS: LEVOTHYROXINE 125MCG TABLET (0.125MG) PO SCH (05:45)
[2022-09-24 06:25] VITALS: BP 130/85
[2022-09-24] MEDS: DIVALPROEX 500MG *ER* TAB PO SCH (07:47)
[2022-09-24] MEDS: NICOTINE 21MG/24HR 1 EA TRANSDERMAL TD SCH (07:47)
[2022-09-24] MEDS: OLANZapine 5 MG TAB PO SCH ×2 (09:00→20:54)
[2022-09-24 16:05] VITALS: BP 140/90
[2022-09-24] MEDS: DIVALPROEX 250MG *ER* TAB PO SCH (20:53)
[2022-09-24] MEDS: traZODone 50 MG TAB PO PRN (20:53)
[2022-09-25] MEDS: LEVOTHYROXINE 125MCG TABLET (0.125MG) PO SCH (05:58)
[2022-09-25 06:27] VITALS: BP 118/82
[2022-09-25] MEDS: NICOTINE 21MG/24HR 1 EA TRANSDERMAL TD SCH (08:57)
[2022-09-25] MEDS: DIVALPROEX 500MG *ER* TAB PO SCH (08:57)
[2022-09-25] MEDS: OLANZapine 5 MG TAB PO SCH ×2 (08:58→21:00)
[2022-09-25 16:15] VITALS: BP 136/80
[2022-09-25] MEDS: traZODone 50 MG TAB PO PRN (21:32)
[2022-09-25] MEDS: DIVALPROEX 250MG *ER* TAB PO SCH (21:32)
[2022-09-26] MEDS: LEVOTHYROXINE 125MCG TABLET (0.125MG) PO SCH (05:41)
[2022-09-26 07:04] VITALS: BP 118/73
[2022-09-26] MEDS: NICOTINE 21MG/24HR 1 EA TRANSDERMAL TD SCH (08:21)
[2022-09-26] MEDS: DIVALPROEX 500MG *ER* TAB PO SCH (08:21)
[2022-09-26] MEDS: OLANZapine 5 MG TAB PO SCH ×2 (08:23→20:49)
[2022-09-26 17:00] VITALS: BP 122/71
[2022-09-26] MEDS: traZODone 50 MG TAB PO PRN (20:48)
[2022-09-26] MEDS: DIVALPROEX 250MG *ER* TAB PO SCH (20:48)
[2022-09-27] MEDS: LEVOTHYROXINE 125MCG TABLET (0.125MG) PO SCH (05:31)
[2022-09-27 07:02] VITALS: BP 133/73
[2022-09-27] MEDS: DIVALPROEX 500MG *ER* TAB PO SCH (08:34)
[2022-09-27] MEDS: OLANZapine 5 MG TAB PO SCH ×2 (08:34→21:22)
[2022-09-27] MEDS: NICOTINE 21MG/24HR 1 EA TRANSDERMAL TD SCH (08:34)
[2022-09-27 18:08] VITALS: BP 125/69
[2022-09-27] MEDS: DIVALPROEX 250MG *ER* TAB PO SCH (21:22)
[2022-09-27] MEDS: traZODone 50 MG TAB PO PRN (21:22)
[2022-09-28] MEDS: LEVOTHYROXINE 125MCG TABLET (0.125MG) PO SCH (05:31)
[2022-09-28 06:13] VITALS: BP 118/67
[2022-09-28] MEDS: NICOTINE 21MG/24HR 1 EA TRANSDERMAL TD SCH (08:08)
[2022-09-28] MEDS: DIVALPROEX 500MG *ER* TAB PO SCH (08:08)
[2022-09-28] MEDS: OLANZapine 5 MG TAB PO SCH ×2 (08:09→20:57)
[2022-09-28 18:08] VITALS: BP 117/74
[2022-09-28] MEDS: traZODone 50 MG TAB PO PRN (20:34)
[2022-09-28] MEDS: DIVALPROEX 250MG *ER* TAB PO SCH (20:34)
[2022-09-29] MEDS: LEVOTHYROXINE 125MCG TABLET (0.125MG) PO SCH (06:20)
[2022-09-29 06:27] VITALS: BP 137/72
[2022-09-29] MEDS: DIVALPROEX 500MG *ER* TAB PO SCH (08:44)
[2022-09-29] MEDS: NICOTINE 21MG/24HR 1 EA TRANSDERMAL TD SCH (08:44)
[2022-09-29] MEDS: OLANZapine 5 MG TAB PO SCH (08:45)
[2022-09-29] MEDS ORDERED: LEVO125T4 PO (10:16)
[2022-09-29] MEDS ORDERED: DEPA500T2 PO (10:16)
[2022-09-29] MEDS ORDERED: DEPA250T2 PO (10:16)
[2022-09-29] MEDS ORDERED: TRAZ-252 PO (10:16)
== END 2022-09-29 12:45 | disposition home or self-care (01) | DRG 753 ==
LOC: M ED 14:59 → M ED INP 09-08 13:05 → M PSY 09-08 16:54
PROVIDERS: ADMIT Student in an Organized Health Care Education/Training Program; ATTEND Psychiatry & Neurology Psychiatry
DX: F31.9 Bipolar disorder, unspecified (principal); Z91.14 Patient's other noncompliance with medication regimen; R45.851 Suicidal ideations; E03.9 Hypothyroidism, unspecified; F12.90 Cannabis use, unspecified, uncomplicated; F15.90 Other stimulant use, unspecified, uncomplicated; Z79.899 Other long term (current) drug therapy

== ENCOUNTER 2023-08-20 21:35 | Inpatient (IN) | payer MEDICAID, OTHER ==
[~2023-08-20] VITALS: Ht 162.6 cm; Wt 70.8 kg
[~2023-08-20 21:35] MED LIST changes: +DEPA250T2 PO; +LEVO125T4 PO
[2023-08-20] MEDS ORDERED: HOME MED LIST COMPLETE! XX SCH (22:30)
[2023-08-20 22:36] LABS: HEMATOCRIT 38.9 % (36.0-47.0); HEMOGLOBIN 12.4 g/dl (12.0-15.5); MEAN CORPUSCULAR HEMOGLOBIN 27.4 pg (27.0-33.0); MEAN CORPUSCULAR HGB CONC 31.9 g/dl (32.0-36.5); MEAN CORPUSCULAR VOLUME 86.1 fl (80.0-96.0); PLATELET COUNT, AUTOMATED 204 10^3/uL (150-450); RED BLOOD COUNT 4.52 10^6/uL (4.00-5.40)
[2023-08-20 23:08] LABS: ETHYL ALCOHOL (ETHANOL) < 0.003 % (0.000-0.010); SALICYLATE LEVEL < 3.0 MG/DL (<30)
[2023-08-20 23:09] LABS: ACETAMINOPHEN LEVEL < 2.0 UG/ML (10.0-20.0); ALBUMIN 3.6 G/DL (3.2-5.2); ALKALINE PHOSPHATASE 72 U/L (46-116); ALT/SGPT 15 U/L (7.0-40); AST/SGOT 17 U/L (<34); BILIRUBIN,DIRECT 0.2 MG/DL (<0.4); BILIRUBIN,TOTAL 0.6 MG/DL (0.3-1.2); BLOOD UREA NITROGEN 22 MG/DL (9-23); CALCIUM LEVEL 9.2 MG/DL (8.5-10.1); CARBON DIOXIDE LEVEL 27 MMOL/L (20-31); CHLORIDE LEVEL 109 MMOL/L (98-107); GLOMERULAR FILTRATION RATE > 60.0 (>58); GLUCOSE, FASTING 93 MG/DL (60-100); HCG, SERUM QUALITATIVE NEGATIVE (NEGATIVE); POTASSIUM SERUM 4.3 MMOL/L (3.5-5.1); SODIUM LEVEL 142 MMOL/L (136-145); TOTAL PROTEIN 6.4 G/DL (5.7-8.2)
[2023-08-20 23:10] LABS: THYROID STIMULATING HORMONE 15.741 uIU/ML (0.55-4.78)
[2023-08-21 01:03] LABS: BARBITURATES URINE NEGATIVE (NEGATIVE); BENZODIAZEPINES URINE NEGATIVE (NEGATIVE); COCAINE METABOLITE URINE NEGATIVE (NEGATIVE)
[2023-08-21 01:04] LABS: CANNABINOIDS URINE NEGATIVE (NEGATIVE); METHADONE URINE NEGATIVE (NEGATIVE); OPIATES URINE NEGATIVE (NEGATIVE); PHENCYCLIDINE URINE NEGATIVE (NEGATIVE)
[2023-08-21 01:05] LABS: AMPHETAMINES LEVEL URINE POSITIVE (NEGATIVE)
[2023-08-21] MEDS ORDERED: MIDAZOLAM INJ 2MG/2ML VIAL IM ONE (04:10)
[2023-08-21] MEDS ORDERED: HALOPERIDOL 5MG/ML 1ML VIAL IM ONE (04:10)
[2023-08-21] MEDS ORDERED: diphenhydrAMINE 50MG/ML VIAL IM ONE (04:10)
[2023-08-21] MEDS ORDERED: LORazepam 1 MG TAB PO PRN (14:50)
[2023-08-21] MEDS ORDERED: MOM 30ML SUSPENSION UDC PO PRN (14:50)
[2023-08-21] MEDS ORDERED: diphenhydrAMINE 25MG CAP PO PRN (14:50)
[2023-08-21] MEDS ORDERED: MAALOX 30 ML SUSP *UDC PO PRN (14:50)
[2023-08-22 07:03] VITALS: BP 128/77; TEMP 97.3; O2SAT 98
[2023-08-22] MEDS: DIVALPROEX 250MG *ER* TAB PO SCH ×2 (09:00→20:53)
[2023-08-22] MEDS: PALIPERIDONE 3MG ER TAB (INVEGA) PO SCH ×2 (09:00→20:53)
[2023-08-22] MEDS ORDERED: OLANZapine ORAL DISINTEGRATING TAB 5MG PO PRN (10:40)
[2023-08-22 16:35] VITALS: BP 134/81; TEMP 97.4; O2SAT 96
[2023-08-22] MEDS ORDERED: OLANZapine 5 MG TAB PO SCH (21:00)
[2023-08-23 07:50] LABS: HEMOGLOBIN A1c 5.4 % (4.0-6.0)
[2023-08-23 07:58] LABS: CHOLESTEROL RISK RATIO 2.56 (<5); HDL CHOLESTEROL 69.3 MG/DL (>40); LDL CHOLESTEROL 95.3 MG/DL (<100); NON-HDL-C 108.7 MG/DL
[2023-08-23] MEDS: PALIPERIDONE 3MG ER TAB (INVEGA) PO SCH ×2 (09:00→21:00)
[2023-08-23] MEDS: DIVALPROEX 250MG *ER* TAB PO SCH ×2 (09:00→21:00)
[2023-08-23 16:41] VITALS: BP 120/80; TEMP 97.4; O2SAT 100
[2023-08-24 06:19] VITALS: BP 106/56; TEMP 98.3; O2SAT 100
[2023-08-24] MEDS: DIVALPROEX 250MG *ER* TAB PO SCH ×2 (09:15→20:16)
[2023-08-24] MEDS: PALIPERIDONE 3MG ER TAB (INVEGA) PO SCH ×2 (09:15→20:15)
[2023-08-24] MEDS: NICOTINE 14 MG/24 HR TRANSDERMAL TD PRN (17:39)
[2023-08-25 06:26] VITALS: BP 121/87; TEMP 96.6; O2SAT 100
[2023-08-25] MEDS: DIVALPROEX 250MG *ER* TAB PO SCH ×2 (07:33→21:00)
[2023-08-25] MEDS: PALIPERIDONE 3MG ER TAB (INVEGA) PO SCH ×2 (07:33→21:00)
[2023-08-25 16:36] VITALS: BP 123/89; TEMP 98; O2SAT 99
[2023-08-26 06:05] VITALS: BP 121/59; TEMP 98.2; O2SAT 99
[2023-08-26] MEDS: PALIPERIDONE 3MG ER TAB (INVEGA) PO SCH ×2 (09:00→20:36)
[2023-08-26] MEDS: DIVALPROEX 250MG *ER* TAB PO SCH ×2 (09:00→20:36)
[2023-08-26 16:07] VITALS: BP 116/66; TEMP 98; O2SAT 99
[2023-08-27 06:27] VITALS: BP 159/90; TEMP 97.2; O2SAT 98
[2023-08-27] MEDS: DIVALPROEX 250MG *ER* TAB PO SCH ×2 (09:00→21:00)
[2023-08-27] MEDS: PALIPERIDONE 3MG ER TAB (INVEGA) PO SCH ×2 (09:00→21:00)
[2023-08-27 16:25] VITALS: BP 128/87; TEMP 98.3; O2SAT 100
[2023-08-28 06:24] VITALS: BP 134/69; TEMP 97.9; O2SAT 100
[2023-08-28] MEDS: PALIPERIDONE 3MG ER TAB (INVEGA) PO SCH ×2 (12:31→20:24)
[2023-08-28] MEDS: DIVALPROEX 250MG *ER* TAB PO SCH ×2 (12:32→20:24)
[2023-08-28 18:13] VITALS: BP 133/73; TEMP 98.5
[2023-08-29 06:34] VITALS: BP 134/76; TEMP 98; O2SAT 98
[2023-08-29] MEDS: DIVALPROEX 250MG *ER* TAB PO SCH ×2 (07:56→20:40)
[2023-08-29] MEDS: PALIPERIDONE 3MG ER TAB (INVEGA) PO SCH ×2 (07:56→20:40)
[2023-08-29] MEDS: CEPACOL LOZENGE PO PRN ×3 (12:23→23:07)
[2023-08-29 18:03] VITALS: BP 131/86; TEMP 98; O2SAT 100
[2023-08-30 06:43] VITALS: BP 126/72; TEMP 97.2; O2SAT 100
[2023-08-30] MEDS: CEPACOL LOZENGE PO PRN ×3 (07:20→21:05)
[2023-08-30] MEDS: DIVALPROEX 250MG *ER* TAB PO SCH (08:39)
[2023-08-30] MEDS: PALIPERIDONE 3MG ER TAB (INVEGA) PO SCH ×2 (08:40→20:39)
[2023-08-30 16:24] VITALS: BP 145/80; TEMP 97.5; O2SAT 99
[2023-08-30] MEDS: DIVALPROEX 500MG *ER* TAB PO SCH (20:39)
[2023-08-31] MEDS: DIVALPROEX 500MG *ER* TAB PO SCH ×2 (08:24→21:08)
[2023-08-31] MEDS: PALIPERIDONE 3MG ER TAB (INVEGA) PO SCH ×2 (08:24→21:08)
[2023-08-31 18:34] VITALS: BP 155/93; TEMP 97.5; O2SAT 100
[2023-09-01 07:08] VITALS: BP 144/78; TEMP 97.9; O2SAT 96
[2023-09-01] MEDS: DIVALPROEX 500MG *ER* TAB PO SCH ×2 (08:10→20:30)
[2023-09-01] MEDS: PALIPERIDONE 3MG ER TAB (INVEGA) PO SCH ×2 (08:10→20:30)
[2023-09-01] MEDS ORDERED: PALIPERIDONE PAL 234MG/1.5ML INJ (INVEGA)(FREE PSY INPT ONLY) IM ONE ×2 (09:00)
[2023-09-01] MEDS: IBUPROFEN 400MG TAB PO PRN (13:18)
[2023-09-01] MEDS: ACETAMINOPHEN TAB 650MG DOSE (2X325MG) PO PRN ×2 (13:49→20:32)
[2023-09-01] MEDS: traZODone 50 MG TAB PO PRN (20:33)
[2023-09-02 06:13] VITALS: BP 121/63; TEMP 98.3; O2SAT 98
[2023-09-02] MEDS: ACETAMINOPHEN TAB 650MG DOSE (2X325MG) PO PRN ×2 (06:26→15:27)
[2023-09-02] MEDS: DIVALPROEX 500MG *ER* TAB PO SCH ×2 (08:48→20:18)
[2023-09-02] MEDS: PALIPERIDONE 3MG ER TAB (INVEGA) PO SCH ×2 (08:48→20:18)
[2023-09-02] MEDS: NICOTINE 14 MG/24 HR TRANSDERMAL TD PRN (08:50)
[2023-09-02 18:24] VITALS: BP 118/72; TEMP 97.5
[2023-09-02] MEDS: traZODone 50 MG TAB PO PRN (20:19)
[2023-09-02] MEDS: CEPACOL LOZENGE PO PRN (22:06)
[2023-09-02] MEDS: IBUPROFEN 400MG TAB PO PRN (22:39)
[2023-09-03 06:28] VITALS: BP 134/83; TEMP 97.8; O2SAT 100
[2023-09-03] MEDS: DIVALPROEX 500MG *ER* TAB PO SCH ×2 (09:40→21:28)
[2023-09-03] MEDS: CEPACOL LOZENGE PO PRN (09:41)
[2023-09-03] MEDS: IBUPROFEN 400MG TAB PO PRN (09:41)
[2023-09-03] MEDS: PALIPERIDONE 3MG ER TAB (INVEGA) PO SCH ×2 (09:41→21:28)
[2023-09-03] MEDS: NICOTINE 14 MG/24 HR TRANSDERMAL TD PRN (09:46)
[2023-09-03 18:38] VITALS: BP 122/78; TEMP 97.5; O2SAT 99
[2023-09-03] MEDS: traZODone 50 MG TAB PO PRN (21:28)
[2023-09-04 06:41] VITALS: BP 129/70; TEMP 97.4; O2SAT 100
[2023-09-04] MEDS: DIVALPROEX 500MG *ER* TAB PO SCH ×2 (08:16→21:00)
[2023-09-04] MEDS: PALIPERIDONE 3MG ER TAB (INVEGA) PO SCH ×2 (08:16→21:00)
[2023-09-04] MEDS ORDERED: PALIPERIDONE PAL 156MG/1ML INJ(INVEGA)(FREE PSY INPT ONLY) IM ONE (10:00)
[2023-09-04] MEDS ORDERED: LORazepam 2 MG/ML 1ML VIAL IM ONE (14:05)
[2023-09-04] MEDS ORDERED: HALOPERIDOL 5MG/ML 1ML VIAL IM ONE (14:05)
[2023-09-04] MEDS ORDERED: diphenhydrAMINE 50MG/ML VIAL IM ONE (14:05)
[2023-09-04 18:21] VITALS: BP 118/55; TEMP 98.2; O2SAT 97
[2023-09-05 06:48] VITALS: BP 130/97; TEMP 98; O2SAT 100
[2023-09-05] MEDS: PALIPERIDONE 3MG ER TAB (INVEGA) PO SCH ×2 (07:43→20:23)
[2023-09-05] MEDS: DIVALPROEX 500MG *ER* TAB PO SCH ×2 (07:44→20:23)
[2023-09-05] MEDS: IBUPROFEN 400MG TAB PO PRN (11:53)
[2023-09-05 16:11] VITALS: BP 139/76; TEMP 98.9; O2SAT 95
[2023-09-05] MEDS: ACETAMINOPHEN TAB 650MG DOSE (2X325MG) PO PRN (18:02)
[2023-09-05] MEDS: traZODone 50 MG TAB PO PRN (20:23)
[2023-09-06 06:51] VITALS: BP 102/82; TEMP 98.3; O2SAT 97
[2023-09-06] MEDS: DIVALPROEX 500MG *ER* TAB PO SCH ×2 (07:54→20:00)
[2023-09-06] MEDS: PALIPERIDONE 3MG ER TAB (INVEGA) PO SCH ×2 (07:54→20:00)
[2023-09-06] MEDS: ACETAMINOPHEN TAB 650MG DOSE (2X325MG) PO PRN (07:54)
[2023-09-06 16:31] VITALS: BP 144/84; TEMP 98.8; O2SAT 98
[2023-09-06] MEDS: IBUPROFEN 400MG TAB PO PRN (17:20)
[2023-09-06] MEDS: traZODone 50 MG TAB PO PRN (19:59)
[2023-09-07 06:30] VITALS: BP 124/88; TEMP 98; O2SAT 99
[2023-09-07] MEDS: PALIPERIDONE 3MG ER TAB (INVEGA) PO SCH ×2 (07:58→19:59)
[2023-09-07] MEDS: DIVALPROEX 500MG *ER* TAB PO SCH ×2 (07:59→19:59)
[2023-09-07] MEDS: IBUPROFEN 400MG TAB PO PRN (14:29)
[2023-09-07] MEDS: traZODone 50 MG TAB PO PRN (19:59)
[2023-09-07] MEDS: ACETAMINOPHEN TAB 650MG DOSE (2X325MG) PO PRN (22:59)
[2023-09-08 06:26] VITALS: BP 116/75; TEMP 97.5; O2SAT 98
[2023-09-08] MEDS: PALIPERIDONE 3MG ER TAB (INVEGA) PO SCH ×2 (07:38→20:00)
[2023-09-08] MEDS: DIVALPROEX 500MG *ER* TAB PO SCH ×2 (07:38→20:01)
[2023-09-08] MEDS: IBUPROFEN 400MG TAB PO PRN (07:39)
[2023-09-08] MEDS: NICOTINE 14 MG/24 HR TRANSDERMAL TD PRN (10:22)
[2023-09-08 16:37] VITALS: BP 132/80; TEMP 98.8; O2SAT 97
[2023-09-08] MEDS: ACETAMINOPHEN TAB 650MG DOSE (2X325MG) PO PRN (20:00)
[2023-09-08] MEDS: traZODone 50 MG TAB PO PRN (20:00)
[2023-09-09 06:48] VITALS: BP 125/78; TEMP 97.6; O2SAT 99
[2023-09-09] MEDS: DIVALPROEX 500MG *ER* TAB PO SCH ×2 (08:31→20:00)
[2023-09-09] MEDS: PALIPERIDONE 3MG ER TAB (INVEGA) PO SCH ×2 (08:31→20:00)
[2023-09-09 16:21] VITALS: BP 134/86; TEMP 98.2; O2SAT 98
[2023-09-10 06:35] VITALS: BP 123/87; TEMP 98.6; O2SAT 97
[2023-09-10] MEDS: CEPACOL LOZENGE PO PRN (06:54)
[2023-09-10] MEDS: PALIPERIDONE 3MG ER TAB (INVEGA) PO SCH ×2 (07:51→19:57)
[2023-09-10] MEDS: DIVALPROEX 500MG *ER* TAB PO SCH ×2 (07:51→19:57)
[2023-09-10 16:01] VITALS: BP 133/72; TEMP 98.2; O2SAT 98
[2023-09-11 06:05] VITALS: BP 120/80; TEMP 98.5; O2SAT 98
[2023-09-11] MEDS: PALIPERIDONE 3MG ER TAB (INVEGA) PO SCH ×2 (08:09→20:13)
[2023-09-11] MEDS: DIVALPROEX 500MG *ER* TAB PO SCH ×2 (08:10→20:13)
[2023-09-11 18:31] VITALS: BP 132/82; TEMP 99.3; O2SAT 99
[2023-09-12 06:07] VITALS: BP 119/88; TEMP 98.1; O2SAT 97
[2023-09-12] MEDS: PALIPERIDONE 3MG ER TAB (INVEGA) PO SCH ×2 (08:21→20:02)
[2023-09-12] MEDS: DIVALPROEX 500MG *ER* TAB PO SCH ×2 (08:22→20:02)
[2023-09-12 19:07] VITALS: BP 113/67; TEMP 97.1; O2SAT 100
[2023-09-13 06:24] VITALS: BP 138/75; TEMP 97.7; O2SAT 98
[2023-09-13] MEDS: PALIPERIDONE 3MG ER TAB (INVEGA) PO SCH (08:43)
[2023-09-13] MEDS: DIVALPROEX 500MG *ER* TAB PO SCH (08:43)
[2023-09-13] MEDS ORDERED: NICO14PA TD (10:11)
[2023-09-13] MEDS ORDERED: INVE234I IM (10:11)
[2023-09-13] MEDS ORDERED: DEPA500T2 PO (10:11)
== END 2023-09-13 14:50 | disposition home or self-care (01) | DRG 753 ==
LOC: M ED 21:35 → M ED INP 08-21 14:52 → M PSY 08-21 17:15
PROVIDERS: ADMIT Student in an Organized Health Care Education/Training Program; ATTEND Student in an Organized Health Care Education/Training Program
DX: F31.2 Bipolar disorder, current episode manic severe with psychotic features (principal); F10.10 Alcohol abuse, uncomplicated; F12.90 Cannabis use, unspecified, uncomplicated; F17.200 Nicotine dependence, unspecified, uncomplicated; F15.90 Other stimulant use, unspecified, uncomplicated; M19.90 Unspecified osteoarthritis, unspecified site

== ENCOUNTER 2024-03-08 16:07 | Emergency (ER) | payer MEDICAID, OTHER ==
[~2024-03-08] VITALS: Ht 160 cm; Wt 68.3 kg
[~2024-03-08 16:07] MED LIST changes: +INVE234I IM; +NICO14PA TD
[2024-03-08 19:11] VITALS: BP 121/81; TEMP 97.1; O2SAT 96
== END 2024-03-08 19:40 | disposition left against medical advice (07) ==
LOC: M ED 16:07
DX: Z53.21 Procedure and treatment not carried out due to patient leaving prior to being seen by health care provider (principal)

== ENCOUNTER → 2024-03-22 | Outpatient (CLI) | payer MEDICAID | LOC: M OUTALCOH 07:18 | PROVIDERS: ATTEND Psychiatry & Neurology Psychiatry | DX: F10.20 Alcohol dependence, uncomplicated (principal); F12.10 Cannabis abuse, uncomplicated; F17.200 Nicotine dependence, unspecified, uncomplicated ==

== ENCOUNTER → 2024-12-10 | Outpatient (CLI) | payer MEDICAID, OTHER ==
[~2024-12-10] MED LIST changes: -ARIP1TAB43 PO; +ARIP20TA51 PO; +LITH450T11 PO; -LITH45TASA PO; -OLAN20TA14 PO; +OLAN20TA53 PO
[2024-12-10 13:00] LABS: HEMATOCRIT 42.9 % (36.0-47.0); HEMOGLOBIN 13.3 g/dl (12.0-15.5); MEAN CORPUSCULAR HEMOGLOBIN 27.3 pg (27.0-33.0); MEAN CORPUSCULAR VOLUME 87.9 fl (80.0-96.0); PLATELET COUNT, AUTOMATED 223 10^3/uL (150-450); RED BLOOD COUNT 4.88 10^6/uL (4.00-5.40); WHITE BLOOD COUNT 5.9 10^3/uL (4.0-10.0)
[2024-12-10 13:34] LABS: ALBUMIN 3.3 G/DL (3.2-5.2); ALKALINE PHOSPHATASE 74 U/L (35-104); ALT/SGPT 16 U/L (7.0-40); AST/SGOT 16 U/L (<34); BILIRUBIN,TOTAL 0.5 MG/DL (0.3-1.2); BLOOD UREA NITROGEN 13 MG/DL (9-23); CALCIUM LEVEL 9.7 MG/DL (8.5-10.1); CARBON DIOXIDE LEVEL 32 MMOL/L (20-31); CHLORIDE LEVEL 107 MMOL/L (98-107); CHOLESTEROL LEVEL 181 MG/DL (<200); CREATININE FOR GFR 0.61 MG/DL (0.55-1.30); GLOMERULAR FILTRATION RATE > 60.0 (>58); GLUCOSE, FASTING 93 MG/DL (60-100); HDL CHOLESTEROL 60.2 MG/DL (>40); LDL CHOLESTEROL 100.2 MG/DL (<100); NON-HDL-C 120.8 MG/DL; POTASSIUM SERUM 4.1 MMOL/L (3.5-5.1); SODIUM LEVEL 145 MMOL/L (136-145); TOTAL PROTEIN 6.8 G/DL (5.7-8.2); TRIGLYCERIDES LEVEL 103 MG/DL (<150)
[2024-12-10 13:35] LABS: HCG, SERUM QUALITATIVE NEGATIVE (NEGATIVE)
[2024-12-10 13:38] LABS: HEMOGLOBIN A1c 5.4 % (4.0-6.0)
== END ==
LOC: M LAB 12:12
PROVIDERS: ATTEND Student in an Organized Health Care Education/Training Program
DX: F25.9 Schizoaffective disorder, unspecified (principal)

== ENCOUNTER → 2024-12-10 | Outpatient (CLI) | payer MEDICAID, OTHER | LOC: M RAD 12:18 | PROVIDERS: ATTEND Physician Assistant | DX: R11.2 Nausea with vomiting, unspecified (principal); R19.7 Diarrhea, unspecified ==

== ENCOUNTER → 2024-12-25 | Outpatient (REF) | payer MEDICAID ==
[2024-12-25 17:39] LABS: BASO % 0.3 % (0.0-1.0); EOS # 0.1 10^3/uL (0.0-0.5); EOS % 1.1 % (0.0-3.0); HEMATOCRIT 41.8 % (36.0-47.0); HEMOGLOBIN 13.4 g/dl (12.0-15.5); LYMPH # 2.6 10^3/uL (1.5-5.0); LYMPH % 35.9 % (24.0-44.0); MEAN CORPUSCULAR HEMOGLOBIN 27.6 pg (27.0-33.0); MEAN CORPUSCULAR HGB CONC 32.1 g/dl (32.0-36.5); MEAN CORPUSCULAR VOLUME 86.2 fl (80.0-96.0); MONO # 0.5 10^3/uL (0.0-0.8); MONO % 6.8 % (2.0-8.0); NEUTROPHILS % 55.1 % (36.0-66.0); PLATELET COUNT, AUTOMATED 258 10^3/uL (150-450); RED BLOOD COUNT 4.85 10^6/uL (4.00-5.40); WHITE BLOOD COUNT 7.2 10^3/uL (4.0-10.0)
[2024-12-25 17:45] LABS: ALBUMIN 3.5 G/DL (3.2-5.2); ALKALINE PHOSPHATASE 89 U/L (35-104); ALT/SGPT 28 U/L (7.0-40); AST/SGOT 22 U/L (<34); BILIRUBIN,TOTAL 0.4 MG/DL (0.3-1.2); BLOOD UREA NITROGEN 17 MG/DL (9-23); CALCIUM LEVEL 8.8 MG/DL (8.5-10.1); CARBON DIOXIDE LEVEL 27 MMOL/L (20-31); CHLORIDE LEVEL 104 MMOL/L (98-107); CREATININE FOR GFR 0.54 MG/DL (0.55-1.30); GLOMERULAR FILTRATION RATE > 60.0 (>58); GLUCOSE, FASTING 116 MG/DL (60-100); POTASSIUM SERUM 4.5 MMOL/L (3.5-5.1); SODIUM LEVEL 143 MMOL/L (136-145)
[2024-12-25 17:46] LABS: THYROID STIMULATING HORMONE 21.455 uIU/ML (0.55-4.78)
[2024-12-25 17:49] LABS: INR 0.82; PROTHROMBIN TIME 11.6 SECONDS (12.5-14.5)
[2024-12-25 18:04] LABS: HEPATITIS B SURFACE ANTIGEN NEGATIVE (NEGATIVE)
[2024-12-25 18:17] LABS: HIV 1&2 SCREEN NEGATIVE (NEGATIVE)
== END ==
LOC: M LAB REF 16:16
PROVIDERS: ATTEND Family Medicine Addiction Medicine
DX: E03.9 Hypothyroidism, unspecified (principal); B18.2 Chronic viral hepatitis C

== ENCOUNTER → 2025-07-01 | Outpatient (REF) | payer MEDICAID, OTHER ==
[~2025-07-01] MED LIST changes: +DEPA250T PO; -DEPA250T2 PO; -LITH450T11 PO; +LITH450T17 PO
[2025-07-01 13:48] LABS: CALCIUM LEVEL 8.8 MG/DL (8.5-10.1); CARBON DIOXIDE LEVEL 25 MMOL/L (20-31); CHLORIDE LEVEL 108 MMOL/L (98-107); CREATININE FOR GFR 0.68 MG/DL (0.55-1.30); FREE T4 1.20 NG/DL (0.89-1.76); GLOMERULAR FILTRATION RATE > 90.0 (>58); POTASSIUM SERUM 4.2 MMOL/L (3.5-5.1); SODIUM LEVEL 144 MMOL/L (136-145)
[2025-07-01 14:05] LABS: ESTIMATED AVERAGE GLUCOSE 111.0 MG/DL (60-110)
== END ==
LOC: M LAB REF 12:25
PROVIDERS: ATTEND Family Medicine Addiction Medicine
DX: R79.89 Other specified abnormal findings of blood chemistry (principal)

== ENCOUNTER 2025-07-07 10:04 | Emergency (ER) | payer OTHER, MEDICAID ==
[~2025-07-07] VITALS: Ht 160 cm; Wt 95.6 kg
[2025-07-07] MEDS: ONDANSETRON 4MG ORAL DISINTEGRATING TAB PO ONE (13:05)
[2025-07-07 13:14] LABS: KETONE, URINE AUTO RFX 1+ mg/dL (NEGATIVE); MUCUS, URINE RFX LARGE (NEGATIVE); NITRITE, URINE AUTO RFX NEGATIVE (NEGATIVE); RBC, URINE AUTO RFX 47 /HPF (0-3); SQUAM EPITHELIAL CELL UR AURFX 17 /HPF (0-6)
[2025-07-07 13:16] LABS: LEUKOCYTE ESTERASE UR AUTO RFX 3+ (NEGATIVE); WBC, URINE AUTO RFX 71 /HPF (0-3)
[2025-07-07 13:23] LABS: BASO # 0.0 10^3/uL (0.0-0.2); BASO % 0.2 % (0.0-1.0); EOS # 0.0 10^3/uL (0.0-0.5); EOS % 0.3 % (0.0-3.0); LYMPH # 1.4 10^3/uL (1.5-5.0); LYMPH % 14.6 % (24.0-44.0); MONO # 0.8 10^3/uL (0.0-0.8); MONO % 8.7 % (2.0-8.0); NEUTROPHILS # 7.1 10^3/uL (1.5-8.5); NEUTROPHILS % 75.9 % (36.0-66.0); PLATELET COUNT, AUTOMATED 209 10^3/uL (150-450)
[2025-07-07 13:50] LABS: ALT/SGPT 13 U/L (7.0-40); AST/SGOT 18 U/L (<34); CALCIUM LEVEL 9.7 MG/DL (8.5-10.1); CARBON DIOXIDE LEVEL 29 MMOL/L (20-31); CHLORIDE LEVEL 103 MMOL/L (98-107); CREATININE FOR GFR 0.77 MG/DL (0.55-1.30); GLOMERULAR FILTRATION RATE > 90.0 (>58); POTASSIUM SERUM 4.4 MMOL/L (3.5-5.1); SODIUM LEVEL 144 MMOL/L (136-145)
[2025-07-07 14:25] LABS: Trichomonas vaginalis (AMP) POSITIVE (NEGATIVE)
[2025-07-07 14:26] LABS: HCG, SERUM QUALITATIVE NEGATIVE (NEGATIVE)
[2025-07-07 15:03] LABS: GC DNA AMPLIFICATION NEGATIVE (NEGATIVE)
[2025-07-07] MEDS ORDERED: METR-265 PO (15:51)
[2025-07-07] MEDS ORDERED: CEFD1CAP9 PO (15:51)
[2025-07-07 15:56] VITALS: BP 157/98; TEMP 98.2; O2SAT 96
== END 2025-07-07 15:59 | disposition home or self-care (01) ==
LOC: M ED 10:04
DX: N39.0 Urinary tract infection, site not specified (principal); A59.9 Trichomoniasis, unspecified; F17.200 Nicotine dependence, unspecified, uncomplicated; F41.9 Anxiety disorder, unspecified; F31.9 Bipolar disorder, unspecified; Z79.2 Long term (current) use of antibiotics; Z79.899 Other long term (current) drug therapy

== ENCOUNTER → 2025-08-12 | Outpatient (CLI) | payer OTHER, MEDICAID ==
[~2025-08-12] MED LIST changes: +CEFD1CAP9 PO; -IBUP-1022 PO; +IBUP600T42 PO; +METR-265 PO
[2025-08-12 13:04] LABS: BASO # 0.0 10^3/uL (0.0-0.2); BASO % 0.3 % (0.0-1.0); EOS # 0.0 10^3/uL (0.0-0.5); EOS % 0.4 % (0.0-3.0); LYMPH # 2.6 10^3/uL (1.5-5.0); LYMPH % 25.5 % (24.0-44.0); MONO # 1.0 10^3/uL (0.0-0.8); MONO % 9.7 % (2.0-8.0); NEUTROPHILS # 6.4 10^3/uL (1.5-8.5); NEUTROPHILS % 63.5 % (36.0-66.0); PLATELET COUNT, AUTOMATED 226 10^3/uL (150-450)
[2025-08-12 13:36] LABS: ALT/SGPT 136 U/L (7.0-40); AST/SGOT 69 U/L (<34); CALCIUM LEVEL 9.7 MG/DL (8.5-10.1); CARBON DIOXIDE LEVEL 28 MMOL/L (20-31); CHLORIDE LEVEL 105 MMOL/L (98-107); CREATININE FOR GFR 0.78 MG/DL (0.55-1.30); GLOMERULAR FILTRATION RATE > 90.0 (>58); POTASSIUM SERUM 4.4 MMOL/L (3.5-5.1); SODIUM LEVEL 139 MMOL/L (136-145)
[2025-08-12 13:40] LABS: HCG, SERUM QUALITATIVE NEGATIVE (NEGATIVE)
[2025-08-12 14:04] LABS: HIV 1&2 SCREEN NEGATIVE (NEGATIVE)
== END ==
LOC: M LAB 12:03
PROVIDERS: ATTEND Emergency Medicine
DX: B18.2 Chronic viral hepatitis C (principal)

== ENCOUNTER 2025-10-05 06:40 | Emergency (ER) | payer MEDICAID, OTHER ==
[2025-10-05] MEDS: HALOPERIDOL LACTATE 5 MG/ML VIAL IM STA (06:56)
[2025-10-05] MEDS: diphenhydrAMINE 50 MG/ML VIAL IM STA (06:57)
[2025-10-05] MEDS: MIDAZOLAM 5 MG/ML 1 ML VIAL IM ONE (06:57)
[2025-10-05 07:33] VITALS: BP 123/84; TEMP 96.8; O2SAT 94
[2025-10-05 07:39] LABS: PLATELET COUNT, AUTOMATED 238 10^3/uL (150-450)
[2025-10-05 08:09] LABS: BARBITURATES URINE NEGATIVE (NEGATIVE); BENZODIAZEPINES URINE NEGATIVE (NEGATIVE); CANNABINOIDS URINE NEGATIVE (NEGATIVE); COCAINE METABOLITE URINE NEGATIVE (NEGATIVE); METHADONE URINE NEGATIVE (NEGATIVE); OPIATES URINE NEGATIVE (NEGATIVE); PHENCYCLIDINE URINE NEGATIVE (NEGATIVE)
[2025-10-05 08:10] LABS: AMPHETAMINES LEVEL URINE POSITIVE (NEGATIVE); ETHYL ALCOHOL (ETHANOL) < 0.003 % (0.000-0.010)
[2025-10-05 08:11] LABS: SALICYLATE LEVEL < 3.0 MG/DL (<30)
[2025-10-05 08:12] LABS: ALT/SGPT 23 U/L (7.0-40); AST/SGOT 24 U/L (<34); CALCIUM LEVEL 9.6 MG/DL (8.5-10.1); CARBON DIOXIDE LEVEL 28 MMOL/L (20-31); CHLORIDE LEVEL 107 MMOL/L (98-107); CREATININE FOR GFR 0.88 MG/DL (0.55-1.30); GLOMERULAR FILTRATION RATE 83.1 (>58); POTASSIUM SERUM 3.9 MMOL/L (3.5-5.1); SODIUM LEVEL 147 MMOL/L (136-145)
[2025-10-05] MEDS ORDERED: ISOVUE-370 76% 100 ML VIAL As Ordered ONE (09:35)
== END 2025-10-05 10:44 | disposition home or self-care (01) ==
LOC: M ED 06:40
DX: F43.0 Acute stress reaction (principal); F15.10 Other stimulant abuse, uncomplicated; F31.9 Bipolar disorder, unspecified; F10.10 Alcohol abuse, uncomplicated; Z79.2 Long term (current) use of antibiotics; Z79.899 Other long term (current) drug therapy
CPT/HCPCS: 36415; 80048; 80076; 80143; 80307; 82077; 84443; 85027; 99284; Q9967

== ENCOUNTER → 2025-10-10 | Outpatient (CLI) | payer OTHER | LOC: M WHC 09:28 | PROVIDERS: ATTEND Physician Assistant Medical | DX: Z12.31 Encounter for screening mammogram for malignant neoplasm of breast (principal); N91.1 Secondary amenorrhea ==